=== PATIENT | male | born 1970 | race Caucasian/White ===

== ENCOUNTER 2016-07-07 14:24 | Inpatient (IN) ==
[2016-07-07] MEDS ORDERED: Ipratropium/Albuterol Neb 3 ML IH ONE (15:06)
--- NOTE | 2016-07-07 15:11 | Emergency Department Note ---
Disposition Clinical Impression: Sepsis, Sarcoidosis Pneumonia Qualifiers: Pneumonia type: due to unspecified organism Laterality: bilateral Lung location : unspecified part of lung Qualified Code(s): J18.9 - Pneumonia, unspecified organism Disposition: Admitted As Inpatient Condition: Fair Time of Disposition: 19:57 SOB HPI - General Chief Complaint: ED Shortness of Breath/Dyspnea Stated Complaint: pneumonia worsening Time Seen by Provider: 07/07/16 15:06 Source: patient Nursing Notes Reviewed: Yes Vital Signs Reviewed: Yes - History of Present Illness Patient is a 46-year-old male who presents to [facility] ED with a chief complaint of difficulty breathing. Patient was recently diagnosed with pneumonia in May. He was admitted for a few days and then decided to leave AGAINST MEDICAL ADVICE on . States since then he has been gradually getting worse. He was not discharged with any antibiotics. He is not on any home oxygen. Patient was found to be in the mid 80s at urgent care on room air. Chest x-ray revealed that his pneumonia had gotten a little worse. Patient on exam is dyspneic at rest. Also complaining of right upper quadrant abdominal pain. Denies any nausea, vomiting, fever or chills. No problems with urination or bowel movements. Pt Subjective Complaint: shortness of breath Onset (ago): week(s) Context: recent illness Severity: moderate Consistency/Duration: constant Improves with: nothing Worsens with: nothing Known history of: COPD, diabetes Treatment prior to arrival: oxygen Cough present: No Cough Frequency: Continuous - Related Data Home oxygen amount: none Home Medications Medication Instructions Recorded Confirmed Oxycodone HCl 30 mg PO Q6H PRN 10/17/15 07/07/16 Linagliptin [Tradjenta] 5 mg PO DAILY 12/05/15 07/07/16 Ciclopirox [Loprox] 1 appl TP 3XW 12/27/15 07/07/16 Aspirin [Lo-Dose Aspirin EC] 81 mg PO DAILY 07/07/16 07/07/16 Previous Rx's Medication Instructions Recorded Ibuprofen [Motrin] 600 mg PO Q6HR PRN #30 tab 12/18/15 Allergies Allergy/AdvReac Type Severity Reaction Status Date / Time gabapentin [From Neurontin] Allergy Hives Verified 07/07/16 14:41 acetaminophen [From Vicodin] AdvReac Severe Nausea Verified 07/07/16 18:28 hydrocodone [From Vicodin] AdvReac Nausea Verified 07/07/16 18:28 Oxycodone [From OxyContin] AdvReac Itching Verified 07/07/16 18:28 triamcinolone [From Kenalog] AdvReac Headache Verified 07/07/16 18:28 All systems ED: reviewed and negative except as stated. Past Medical History - Past Medical History Attestation: Yes The following information was validated with the patient. Source: patient Medical history: Reports: COPD, diabetes, RA, other Surgical history: Reports: orthopedic, other Psychiatric history: Reports: no psych history - Social History Smoking Status: Current every day smoker Smokeless Tobacco Status: No Alcohol use: Reports: none Drug use: Reports: none Physical Exam - General Limitations: no limitations General appearance: alert, in no apparent distress - Head Head exam: atraumatic, normocephalic, normal inspection - Eye Eye exam: Present: normal appearance, PERRL, EOMI - ENT ENT exam: normal exam, normal oropharynx, mucous membranes moist - Neck Neck exam: Present: normal inspection, full ROM, trachea midline - Chest Chest inspection: Present: normal inspection, symmetric chest wall rise - Respiratory Respiratory exam: Present: normal lung sounds bilaterally - Cardiovascular Cardiovascular exam: Present: tachycardia, normal heart sounds - Abdominal Exam Abdominal exam: Present: soft, tenderness. Absent: distention, guarding, rebound, rigidity Abdominal tenderness: Present: RUQ, diffuse, severe - Extremities Exam Extremities exam: Present: normal inspection, full ROM. Absent: tenderness, pedal edema - Back Exam Back exam: Present: normal inspection, full ROM. Absent: tenderness - Neurological Exam Neurological exam: Present: alert, oriented X3 - Psychiatric Psychiatric exam: Present: normal affect, normal mood - Skin Skin exam: Present: warm, dry, intact, normal color Course Course Narrative: Patient seen and examined. Worsening dyspnea. He is hypoxemic upon his presentation and his mid 80s on room air. He is not on any home oxygen. He still smokes one pack a day. Left AMA from [facility] when he was diagnosed with pneumonia. Repeat chest x-ray shows worsening pneumonia. Cardiopulmonary workup initiated. - Reevaluation(s) Reevaluation #1: White count of 26. Pending imaging. We will go ahead and treat with vancomycin and Zosyn. Will give 1 L fluid bolus as well as draw blood cultures. Time: 16:49 Reevaluation #2: second L IVF bolus ordered. Spoke with hospitalist Dr. Bartlett who accepted pt for admission. Would like an abg. Time: 18:23 Vital Signs Temperature 98.3 F 07/07/16 14:37 Pulse Rate 112 07/07/16 14:37 Respiratory Rate 22 07/07/16 14:37 Blood Pressure 142/90 07/07/16 14:37 O2 Sat by Pulse Oximetry 88 L 07/07/16 14:37 Temperature 101.1 F H 07/07/16 19:57 Pulse Rate 101 07/07/16 19:57 Respiratory Rate 20 07/07/16 19:57 Blood Pressure 119/74 07/07/16 19:57 O2 Sat by Pulse Oximetry 91 L 07/07/16 19:57 Oxygen Delivery Oxygen Delivery Nasal Cannula Shortness of Breath/Dyspnea - Medical Records Medical records reviewed: Yes I reviewed the patient's medical records. - Lab Data Lab results reviewed: Yes I reviewed the patient's lab results. Result diagrams: 07/07/16 15:29 07/07/16 15:29 Lab Results 07/07/16 07/07/16 07/07/16 Range/Units 15:29 15:29 15:29 WBC 26.9 H (4.3-11.1) K/mcL RBC 7.02 H (4.19-5.50) M/mcL Hgb 20.2 H (12.9-16.9) g/dL Hct 61.0 H (37.5-50.1) % MCV 86.9 (83.0-100.0) fL MCH 28.8 (28.0-33.3) pg MCHC 33.1 (31.6-35.5) g/dL RDW 14.9 H (11.5-14.5) % Plt Count 150 (140-400) K/mcL MPV 10.7 (9.4-12.4) fL Seg Neutrophils % 82.0 % Band Neutrophils % 4.0 (0-4) % Lymphocytes % 10.0 % Monocytes % 4.0 % Neutrophils # 23.1 H (1.6-8.9) K/mcL Lymphocytes # 2.7 (0.6-4.6) K/mcL Monocytes # 1.1 (0.0-1.3) K/mcL Reactive Lymphocytes Present A (Not Present) Platelet Estimate Normal (Normal) Sodium 137 (136-145) mEq/L Potassium 4.1 (3.5-4.5) mEq/L Chloride 103 (98-109) mEq/L Carbon Dioxide 25 (19-29) mEq/L BUN 8 (8-26) mg/dL Creatinine 0.83 (0.72-1.25) mg/dL Est GFR ( Amer) > 60 (> 60) Est GFR (Non-Af Amer) > 60 (> 60) BUN/Creatinine Ratio 10 (6-26) Glucose 243 H (70-99) mg/dL Calculated Osmolality 290 (280-300) Lactic Acid 2.9 H (0.5-2.2) mmol/L Calcium 9.4 (8.6-10.8) mg/dL Total Bilirubin 0.6 (0.2-1.2) mg/dL Direct Bilirubin 0.2 (0.0-0.5) mg/dL Indirect Bilirubin 0.4 (0.0-1.2) mg/dL AST 16 (5-34) Units/L ALT 36 (0-55) Units/L Alkaline Phosphatase 122 (38-126) Units/L Troponin I (0-0.03) ng/mL B-Natriuretic Peptide (0-100) pg/mL Serum Total Protein 7.1 (6.0-8.3) g/dL Albumin 3.5 (3.5-5.0) g/dL Globulin 3.6 H (2.4-3.5) g/dL Albumin/Globulin Ratio 1.0 L (1.1-2.2) Lipase 36 (8-78) Units/L 07/07/16 07/07/16 Range/Units 15:29 15:29 WBC (4.3-11.1) K/mcL RBC (4.19-5.50) M/mcL Hgb (12.9-16.9) g/dL Hct (37.5-50.1) % MCV (83.0-100.0) fL MCH (28.0-33.3) pg MCHC (31.6-35.5) g/dL RDW (11.5-14.5) % Plt Count (140-400) K/mcL MPV (9.4-12.4) fL Seg Neutrophils % % Band Neutrophils % (0-4) % Lymphocytes % % Monocytes % % Neutrophils # (1.6-8.9) K/mcL Lymphocytes # (0.6-4.6) K/mcL Monocytes # (0.0-1.3) K/mcL Reactive Lymphocytes (Not Present) Platelet Estimate (Normal) Sodium (136-145) mEq/L Potassium (3.5-4.5) mEq/L Chloride (98-109) mEq/L Carbon Dioxide (19-29) mEq/L BUN (8-26) mg/dL Creatinine (0.72-1.25) mg/dL Est GFR ( Amer) (> 60) Est GFR (Non-Af Amer) (> 60) BUN/Creatinine Ratio (6-26) Glucose (70-99) mg/dL Calculated Osmolality (280-300) Lactic Acid (0.5-2.2) mmol/L Calcium (8.6-10.8) mg/dL Total Bilirubin (0.2-1.2) mg/dL Direct Bilirubin (0.0-0.5) mg/dL Indirect Bilirubin (0.0-1.2) mg/dL AST (5-34) Units/L ALT (0-55) Units/L Alkaline Phosphatase (38-126) Units/L Troponin I 0.00 (0-0.03) ng/mL B-Natriuretic Peptide < 10 (0-100) pg/mL Serum Total Protein (6.0-8.3) g/dL Albumin (3.5-5.0) g/dL Globulin (2.4-3.5) g/dL Albumin/Globulin Ratio (1.1-2.2) Lipase (8-78) Units/L - Radiology Data Radiology results reviewed: Yes I reviewed the patient's radiology results. - EKG Data EKG attestation: Yes I reviewed and interpreted this EKG. EKG results narrative: ekg done at 14:52 shows sinus tachycardia at [address] elevation or depressiionon. inverted Critical Care Time Critical Care Time: Yes Total Critical Care Time: 35 Attestation: Rectal care time 30 minutes separate of any other billable procedures. Attestation Statement - Attestation Attestation: Patient was seen with resident physician. I reviewed the history, physical, assessment and plan, and agree with the findings. I also personally evaluated this patient and had [id number] time with this patient. 46-year-old male who was recently admitted to a different hospital with a diagnosis of pneumonia. He left AGAINST MEDICAL ADVICE on because he wanted to be home. He was not sent home with any antibiotic treatments. Getting progressively more short of breath since then was seen in urgent care and a x- ray completed that showed worsening pneumonia was sent to the emergency department for evaluation. Additionally patient states that he has had midepigastric and right upper abdominal pain for approximately 1 month period of time he has not had any workup for this. On examination patient has crackles bilaterally in the lungs but otherwise is moving air heart is regular rhythm and rate abdomen is soft and fairly tender in both the midepigastric and right upper quadrants. Extremities are unremarkable. X-ray shows bilateral pneumonia possible aspiration ration, as well as possible sarcoidosis. We will obtain a CT scan of the chest to further rule this out. Also get a CT scan of the abdomen and pelvis to look for causes of his abdominal discomfort. Laboratory data showed significantly elevated white cell count as well as H&H. Patient has an auction requirement will require admission to the hospital. He did meet sepsis criteria was given IV fluids and IV antibiotics as well. We will admit for pneumonia and hypoxemia. Agree with resident physician assessment and plan critical care time 35 minutes.
[2016-07-07] MEDS ORDERED: Ketorolac 30 MG/ML VIAL IV ONE (15:32)
[2016-07-07 15:46] LABS: Mean Corpuscular Volume 86.9 fL (83.0-100.0)
[2016-07-07 15:47] LABS: Hemoglobin 20.2 g/dL (12.9-16.9); Mean Corpuscular HGB Conc 33.1 g/dL (31.6-35.5); Mean Corpuscular Hemoglobin 28.8 pg (28.0-33.3); Mean Platelet Volume 10.7 fL (9.4-12.4); Platelet Count 150 K/mcL (140-400); Red Blood Count 7.02 M/mcL (4.19-5.50); Red Cell Distribution Width 14.9 % (11.5-14.5)
[2016-07-07 16:03] LABS: Alanine Aminotransferase 36 Units/L (0-55); Albumin 3.5 g/dL (3.5-5.0); Alkaline Phosphatase 122 Units/L (38-126); Aspartate Amino Transferase 16 Units/L (5-34); BUN/Creatinine Ratio 10 (6-26); Bilirubin,Direct 0.2 mg/dL (0.0-0.5); Bilirubin,Indirect 0.4 mg/dL (0.0-1.2); Bilirubin,Total 0.6 mg/dL (0.2-1.2); Blood Urea Nitrogen 8 mg/dL (8-26); Calcium 9.4 mg/dL (8.6-10.8); Carbon Dioxide 25 mEq/L (19-29); Chloride 103 mEq/L (98-109); Globulin 3.6 g/dL (2.4-3.5); Glucose 243 mg/dL (70-99); Lipase 36 Units/L (8-78); Osmolality,Calculated 290 (280-300); Potassium 4.1 mEq/L (3.5-4.5); Sodium 137 mEq/L (136-145); Total Protein 7.1 g/dL (6.0-8.3); eGFR For African Americans > 60 (> 60); eGFR For Non-African Americans > 60 (> 60)
[2016-07-07] MEDS ORDERED: 0.9 % Sodium Chloride 1,000 ML IVC ONE ×2 (16:07→18:17)
[2016-07-07 16:20] LABS: Lymphocytes # 2.7 K/mcL (0.6-4.6); Monocytes # 1.1 K/mcL (0.0-1.3); Neutrophils # 23.1 K/mcL (1.6-8.9); Platelet Estimate Normal (Normal); Reactive Lymphocytes Present (Not Present)
[2016-07-07] MEDS ORDERED: Piperacillin/Tazobactam 3.375 GM in D5% in Water (Mini-Bag+) 100 ML IVPB ONE (16:46)
[2016-07-07] MEDS ORDERED: Vancomycin 1,500 MG in D5% in Water 250 ML IVPB ONE (17:00)
[2016-07-07] MEDS ORDERED: *HR* LORazepam 2 MG/ML VIAL IVP ONE (18:43)
[2016-07-07] MEDS ORDERED: Ondansetron 4 MG/2 ML VIAL IV ONE (18:57)
[2016-07-07] MEDS ORDERED: Naloxone 0.4 MG/ML INJ IVP PRN (19:28)
[2016-07-07] MEDS ORDERED: Ondansetron 4 MG/2 ML VIAL IVP PRN (19:28)
--- NOTE | 2016-07-07 20:22 | Internal Med History&Physical ---
Date of Encounter: 07/07/16 Time of Encounter: 20:00 Assessment and Plan (1) Pneumonia Current visit: No Status: Acute Recent pneumonia in May. Patient left AMA without prescriptions for continuation of antibiotic treatment. On abatacept prior to infection. Further workup includes viral panel, strep and legionella antigens, and blood cultures. Consult to pulmonology for possible bronchoscopy. Consideration for pneumocystis jiroveci. Broad spectrum antibiotic coverage with Zosyn, Levofloxacin, and vancomycin. Continue supplemental oxygenation as needed, duoneb treatments. Low suspicion for TB. No weight loss, recent travel, or hemoptysis. Qualifiers: Pneumonia type: due to unspecified organism Laterality: bilateral Lung location: unspecified part of lung Qualified Code(s): J18.9 - Pneumonia, unspecified organism (2) Severe sepsis Current visit: Yes Status: Acute Patient meets severe sepsis criteria with elevated WBC at 26.9, tachycardia >90 , and lactic acid greater than 2. See plan of treatment for pneumonia. (3) COPD (chronic obstructive pulmonary disease) Current visit: Yes Status: Acute In acute exacerbation secondary to pneumonia. See plan for pneumonia. Qualifiers: COPD type: emphysema Emphysema type: unspecified Qualified Code(s): J43.9 - Emphysema, unspecified (4) Obstructive sleep apnea Current visit: Yes Status: Acute (5) Erythrocytosis Current visit: Yes Status: Acute Hemoglobin of 20.2, hematocrit 61, RBCs 7.02. Previously had blood letting weekly, but has not had one in the past 6 months. Continue IV fluids. Consult to oncology. (6) Rheumatoid arthritis Current visit: Yes Status: Acute Positive CCP Qualifiers: Rheumatoid arthritis location: multiple sites Rheumatoid factor presence: unspecified presence Qualified Code(s): M06.9 - Rheumatoid arthritis, unspecified (7) Diabetes Current visit: Yes Status: Acute Sugars elevated at 243 upon arrival. Will hold home medication and correct with sliding scale insulin. Qualifiers: Diabetes mellitus type: type 2 Diabetes mellitus complication status: without complication Diabetes mellitus halfway insulin use: without halfway use Qualified Code(s): E11.9 - Type 2 diabetes mellitus without complications (8) DVT prophylaxis Current visit: Yes Status: Acute Heparin 5000 units SQ Q8hrs (9) Tobacco use disorder Current visit: No Status: Acute Patient has been prescribed varenicline, but states he has not gotten a chance to start it yet and does not feel in any hurry to quit. Nicoderm patches ordered. Internal Medicine - H&P: HPI Chief complaint: dyspnea Admitted From: Emergency Dept Plans for Post Hospital Care: Home History of present illness: Mr. Harmon is a 46 year old male with PMH of COPD, DM, RA, and BERNY who presented to the emergency department for worsening shortness of breath. He states that he has been going through cycles of fevers, chills, coughing and nausea with vomiting every day since he left the hospital on thanksgiving. At that time he was admitted with pneumonia and left AMA without any home medications for continuation of antibiotic therapy. He denies any change in weight over the last month despite stating his cycles of fevers, chills, coughing and nausea with vomiting occur six times per day. He denies any blood or bile in his vomit. He denies any change in bowel and bladder function. He states he has had a headache with ear pain and sinus pressure for the past three days. He has had a dry nonproductive cough since for the past 4 weeks. He was evaluated at urgent care just prior to arrival to the ED and was found to have oxygen saturation in the 80s on room air. He states just prior to being sick he had started on abatacept for his RA and had previously tried Adalimumab shortly before. He states that he has not taken either of these medications since the onset of his current illness. Past Med Surg Social Fam HX - Past Medical History Medical history: COPD, diabetes, RA, other (BERNY) Psychiatric history: no psych history - Past Surgical History Surgical History: orthopedic, other (nodules removed from elbows, left foot, and right shoulder surgeries) - Social History Smoking Status: Current every day smoker Smokeless Tobacco Status: No Alcohol use: none Drug use: none - Family History Father Living Status: Age at : 39 Hx Family Cardiac Disorders: Yes (Triple bypass at age 33, 35, and 37. [place] at 39) Hx Family Musculoskeletal Disorders: Yes (arthritis) Mother Living Status: Still Living Hx Family Respiratory Disorders: Yes (emphysema) Hx Family Musculoskeletal Disorders: Yes (arthritis) Internal Medicine - H&P: Meds Oxycodone HCl 30 mg PO Q6H PRN 10/17/15 [History] Linagliptin [Tradjenta] 5 mg PO DAILY 12/05/15 [History] Ibuprofen [Motrin] 600 mg PO Q6HR PRN #30 tab 12/18/15 [Rx] Ciclopirox [Loprox] 1 appl TP 3XW 12/27/15 [History] Aspirin [Lo-Dose Aspirin EC] 81 mg PO DAILY 07/07/16 [History] Allergies gabapentin [From Neurontin] Allergy (Verified 07/07/16 14:41) Hives acetaminophen [From Vicodin] Adverse Reaction (Severe, Verified 07/07/16 18:28) Nausea hydrocodone [From Vicodin] Adverse Reaction (Verified 07/07/16 18:28) Nausea Oxycodone [From OxyContin] Adverse Reaction (Verified 07/07/16 18:28) Itching triamcinolone [From Kenalog] Adverse Reaction (Verified 07/07/16 18:28) Headache All Systems PM: A 10-system review of systems was performed and is negative for pertinent findings except as documented above in the HPI. - Constitutional Constitutional: chills, fever(s), no night sweats, no weakness, no weight gain, no weight loss - EENT Eyes: no change in vision, no discharge, no pain, no photophobia Ears: ear pain, no decreased hearing, no ear discharge Nose, mouth and throat: nasal congestion, post-nasal drip, sinus pressure - Cardiovascular Cardiovascular ROS IM: dyspnea, no chest pain, no diaphoresis, no lightheadedness, no palpitations, no syncope - Respiratory Respiratory: cough, dyspnea, dyspnea on exertion, no hemoptysis, no wheezing, no excessive phlegm production - Gastrointestinal Gastrointestinal: abdominal pain, nausea, vomiting, no diarrhea, no hematemesis , no hematochezia, no melena - Musculoskeletal Musculoskeletal ROS IM: no numbness, no tingling - Integumentary Integumentary IM: no rash, no unusual bruising - Neurological Neurological ROS: no confusion, no convulsions, no focal weakness, no numbness, no tingling, no tremor(s) - Hematologic/Lymphatic Hematologic/Lymphatic: no easy bruising - Constitutional Vitals: Temp Pulse Resp BP Pulse Ox 98.3 F 113 16 120/78 94 L 07/07/16 14:37 07/07/16 18:31 07/07/16 19:22 07/07/16 19:22 07/07/16 18:31 General appearance: Present: A&O X 3, no acute distress - Head Head exam: Present: atraumatic, normocephalic - Eye Eye exam: Present: EOMI, PERRL, conjuntiva pink, sclera anicteric Pupils: Present: PERRL - Neck Neck exam general surgery: Present: supple, trachea midline. Absent: lymphadenopathy - Respiratory Respiratory exam: Absent: accessory muscle use, rales, rhonchi, wheezes Additional comments: crackles at left lung base - Cardiovascular Cardiovascular exam: Present: RRR, +S1, +S2. Absent: diastolic murmur, gallop, rubs, systolic murmur - GI/Abdominal GI/Abdominal exam: Present: normal bowel sounds, soft, tenderness (diffuse, worst in RUQ), no peritoneal signs. Absent: distended - Extremities Exam Extremities exam: Present: warm, radial pulses palpable and symetrical. Absent : calf tenderness, cyanotic, pedal edema - Neurological Exam Neurological exam: Present: CN II-XII intact, oriented X3, no focal deficits. Absent: pronater drift, facial droop, speech deficit Additional comments: Strength 5/5 in upper extremities and symmetric. Strength 4/5 in right lower extremity due to pain of the foot. Strength 5/5 in left lower extremity. - Skin Skin exam: Present: dry, intact Internal Med - H&P Results - Labs CBC & Chem 7: 07/07/16 15:29 07/07/16 15:29 - Attending Attestation I examined this patient and my medical decision-making was reviewed with the SHEET METAL ASSEMBLER/PA/Advanced Practice Nurse/Resident Physician. I agree with the documented findings, disposition and treatment plan as described except to the extent set forth below.
[2016-07-07] MEDS ORDERED: Dextrose Gel 15 GM PO PRN ×2 (20:51)
[2016-07-07] MEDS ORDERED: *HR* Dextrose 50 % in Water (Syg) 50 ML SYRINGE IVP PRN (20:51)
[2016-07-07] MEDS ORDERED: D5% in Water 1,000 ML IV PRN (20:51)
[2016-07-07] MEDS ORDERED: Ipratropium/Albuterol Neb 3 ML IH PRN (20:54)
[2016-07-07] MEDS ORDERED: Vancomycin 1,500 MG in D5% in Water 250 ML IVPB SCH (21:00)
[2016-07-07] MEDS ORDERED: Ibuprofen 600 MG TABLET PO PRN (21:03)
--- NOTE | 2016-07-07 21:45 | Event Note ---
Date of Encounter: 07/07/16 Time of Encounter: 21:00 I examined this patient and my medical decision-making was reviewed with Dr. Mai. I agree with the documented findings, disposition and treatment plan as described except to the extent set forth below. 46-year-old male with history of rheumatoid arthritis presents to the emergency room due to shortness of breath and hypoxia. He has been on immunosuppressant medications in the past. He is complaining of shortness of breath, cough. Examination reveals intermittent wheezing. First and second heart sounds present with mild tachycardia. CT scan personally reviewed-diffuse ground glass opacities bilaterally and mediastinal lymph adenopathy. 1. Pneumonia-admit inpatient status. High risk due to risk of worsening respiratory failure and the need for intravenous antibiotic therapy for his pneumonia. Patient is at risk of MRSA, Pseudomonas, multidrug resistant Escherichia coli due to recent hospitalization in May at which time he left AMA. He is also at risk of pneumocystis and atypical organisms due to his immunosuppression status. Pulmonology consult. Broad-spectrum IV antibiotic therapy. Oxygen supplementation. Intravenous fluids. Breathing treatments. Expect the patient to stay in the hospital at least 2 midnights. Expected discharge disposition is to his home. 2. Severe sepsis-white count greater than 12,000 and heart rate greater than 90 /m. Lactic acid level greater than 2. Treatment as above. Repeat Lactic acid level ordered. Intravenous fluids. 3. Diabetes [id number] insulin. 4. Chronic erythrocytosis-patient follows up with oncologist outpatient and was having therapeutic bloodletting once a week but has not had one in over 6 months. Oncology consult. Intravenous fluids. 5. Obstructive sleep apnea KATERINE Chavez
[2016-07-07] MEDS: *HR* OxyCODONE Immed Rel 15 MG TABLET PO PRN (22:30)
[2016-07-07] MEDS: Nicotine 14 MG PATCH.TD24 TD SCH (22:31)
[2016-07-07] MEDS: 0.9 % Sodium Chloride 1,000 ML IVC SCH (22:31)
[2016-07-07] MEDS: Insulin LISPRO 300 UNITS/3 ML VIAL SQ SCH (23:16)
[2016-07-07] MEDS: Piperacillin/Tazobactam 3.375 GM in D5% in Water (Mini-Bag+) 100 ML IVPB SCH (23:16)
[2016-07-07] MEDS: *HR* Heparin 5,000 UNIT/ML VIAL SQ SCH (23:16)
[2016-07-08 04:59] LABS: Basophils # 0.1 K/mcL (0.0-0.2); Basophils % 0.6 %; Eosinophils # 0.1 K/mcL (0.0-0.6); Eosinophils % 0.9 %; Hemoglobin 18.7 g/dL (12.9-16.9); Immature Granulocytes % 0.4 % (0-4); Lymphocytes # 3.4 K/mcL (0.6-4.6); Lymphocytes % 27.2 %; Mean Corpuscular HGB Conc 32.1 g/dL (31.6-35.5); Mean Corpuscular Hemoglobin 28.9 pg (28.0-33.3); Mean Corpuscular Volume 89.8 fL (83.0-100.0); Mean Platelet Volume 11.5 fL (9.4-12.4); Monocytes # 0.5 K/mcL (0.0-1.3); Monocytes % 3.8 %; Neutrophils # 8.3 K/mcL (1.6-8.9); Platelet Count 151 K/mcL (140-400); Red Blood Count 6.48 M/mcL (4.19-5.50); Red Cell Distribution Width 14.2 % (11.5-14.5); Segmented Neutrophils % 67.1 %
[2016-07-08 05:10] LABS: Hematocrit 58.2 % (37.5-50.1)
[2016-07-08] MEDS: Vancomycin 1,500 MG in D5% in Water 250 ML IVPB SCH ×2 (05:10→18:37)
[2016-07-08] MEDS: *HR* OxyCODONE Immed Rel 15 MG TABLET PO PRN ×3 (05:10→19:56)
[2016-07-08 05:32] LABS: Alanine Aminotransferase 30 Units/L (0-55); Albumin 3.1 g/dL (3.5-5.0); Alkaline Phosphatase 95 Units/L (38-126); Aspartate Amino Transferase 15 Units/L (5-34); BUN/Creatinine Ratio 12 (6-26); Bilirubin,Total 0.6 mg/dL (0.2-1.2); Blood Urea Nitrogen 10 mg/dL (8-26); Calcium 8.6 mg/dL (8.6-10.8); Carbon Dioxide 25 mEq/L (19-29); Chloride 107 mEq/L (98-109); Globulin 3.1 g/dL (2.4-3.5); Glucose 145 mg/dL (70-99); Osmolality,Calculated 292 (280-300); Potassium 4.3 mEq/L (3.5-4.5); Sodium 140 mEq/L (136-145); Total Protein 6.2 g/dL (6.0-8.3); eGFR For African Americans > 60 (> 60); eGFR For Non-African Americans > 60 (> 60)
[2016-07-08] MEDS ORDERED: *HR* Promethazine 25 MG/ML VIAL IVP ONE (09:22)
[2016-07-08] MEDS ORDERED: *HR* Promethazine 25 MG/ML VIAL ONE (09:24)
--- NOTE | 2016-07-08 09:24 | Internal Med Progress Note ---
<Rogerio Odell - Last Filed: 07/08/16 18:38> Date of Encounter: 07/08/16 Time of Encounter: 08:45 - Assessment and plan (1) Pneumonia Current Visit: No Status: Acute Assessment and plan: - Recent pneumonia in May but patient left AMA without prescriptions for continuation of antibiotic treatment. - Was on abatacept for RA prior to infection. - Low suspicion for TB given no weight loss, recent travel, or hemoptysis. - Respiratory infection panel, strep and legionella antigens and blood cultures pending. - Pulmonology has been consulted for possible bronchoscopy for concern of pneumocystis jiroveci. Also appreciate pulmonology input about possible pulmonary arterial hypertension. - Continue broad spectrum antibiotic coverage with Zosyn, Levofloxacin, and vancomycin. - Continue supplemental oxygen & Duoneb treatments. Qualifiers: Pneumonia type: due to unspecified organism Laterality: bilateral Lung location: unspecified part of lung Qualified Code(s): J18.9 - Pneumonia, unspecified organism (2) Severe sepsis Current Visit: Yes Status: Acute Assessment and plan: - 3 SIRS criteria (leukocytosis, fever & tachycardia on initial presentation) with lactic acid 2.9. - Likely secondary to pneumonia. - Improves as patient has been afebrile and leukocytosis decreases. - Blood culture pending. - Continue IV fluid. - Continue empiric antibiotics. (3) Erythrocytosis Current Visit: Yes Status: Chronic Assessment and plan: - Hemoglobin of 20.2, hematocrit 61, RBCs 7.02 on initial presentation. - Previously had blood letting weekly, but has not had one in the past 6 months. - Improves after IV fluids. - Oncology was consulted and thinks it's secondary erythrocytosis from chronic smoking, COPD, sleep apnea. - Supplemental oxygen use and CPAP use at night. (4) COPD (chronic obstructive pulmonary disease) Current Visit: Yes Status: Acute Assessment and plan: - Continue bronchodilators. - Supplemental oxygen. Qualifiers: COPD type: emphysema Emphysema type: unspecified Qualified Code(s): J43.9 - Emphysema, unspecified (5) DVT prophylaxis Current Visit: Yes Status: Acute Assessment and plan: - SQ heparin. - Subjective Interval history: Patient was seen and examined this morning. Patient reports feeling sick and nausea. Patient also has some chills. Patient denies chest pain, diarrhea. - Constitutional Vitals: Temp Pulse Resp BP Pulse Ox 98.1 F 77 16 106/67 97 07/08/16 07:02 07/08/16 07:02 07/08/16 07:02 07/08/16 07:02 07/08/16 07:02 General appearance: Present: cooperative, A&O X 3, severe distress (Feeling sick & nauseated.), answers questions appropriately - Head Head exam: Present: atraumatic, normocephalic - Eye Eye exam: Present: PERRL, conjuntiva pink, sclera anicteric Pupils: Present: PERRL - Neck Neck exam general surgery: Present: supple, trachea midline. Absent: lymphadenopathy - Respiratory Respiratory exam: Present: rales (left basilar crackles). Absent: accessory muscle use, rhonchi, wheezes - Cardiovascular Cardiovascular exam: Present: RRR, +S1, +S2. Absent: diastolic murmur, gallop, rubs, systolic murmur - GI/Abdominal GI/Abdominal exam: Present: normal bowel sounds, soft, tenderness (epigastric discomfort), no peritoneal signs. Absent: distended - Extremities Exam Extremities exam: Present: warm, radial pulses palpable and symetrical. Absent : calf tenderness, cyanotic, pedal edema - Neurological Exam Neurological exam: Present: CN II-XII intact, oriented X3, no focal deficits. Absent: pronater drift, facial droop, speech deficit - Skin Skin exam: Present: dry, intact Internal Medicine: Result - Labs CBC & Chem 7: 07/08/16 03:38 07/08/16 03:38 Labs: Short CBC 07/08/16 Range/Units 03:38 WBC 12.4 H D (4.3-11.1) K/mcL Hgb 18.7 H D (12.9-16.9) g/dL Hct 58.2 H (37.5-50.1) % Plt Count 151 (140-400) K/mcL Neutrophils # 8.3 (1.6-8.9) K/mcL BMP 07/08/16 03:38 Sodium 140 Potassium 4.3 Chloride 107 Carbon Dioxide 25 BUN 10 Creatinine 0.82 Glucose 145 H Calcium 8.6 Cardiac Enzymes 07/07/16 07/08/16 Range/Units 21:22 03:38 Troponin I 0.00 0.00 (0-0.03) ng/mL Liver Function 07/08/16 Range/Units 03:38 Total Bilirubin 0.6 (0.2-1.2) mg/dL AST 15 (5-34) Units/L ALT 30 (0-55) Units/L Alkaline Phosphatase 95 (38-126) Units/L Albumin 3.1 L (3.5-5.0) g/dL Consult Discharge Plan - Plan Referrals: Tamara Ordoñez, [employer] [Primary Care Provider] - <Beni Bravo - Last Filed: 07/08/16 18:59> Date of Encounter: 07/08/16 - Constitutional Vitals: Temp Pulse Resp BP Pulse Ox 98.1 F 90 14 113/77 89 L 07/08/16 15:05 07/08/16 15:05 07/08/16 15:05 07/08/16 15:05 07/08/16 15:05 Internal Medicine: Result - Labs CBC & Chem 7: 07/08/16 03:38 07/08/16 03:38 Labs: Short CBC 07/08/16 Range/Units 03:38 WBC 12.4 H D (4.3-11.1) K/mcL Hgb 18.7 H D (12.9-16.9) g/dL Hct 58.2 H (37.5-50.1) % Plt Count 151 (140-400) K/mcL Neutrophils # 8.3 (1.6-8.9) K/mcL BMP 07/08/16 03:38 Sodium 140 Potassium 4.3 Chloride 107 Carbon Dioxide 25 BUN 10 Creatinine 0.82 Glucose 145 H Calcium 8.6 Cardiac Enzymes 07/07/16 07/08/16 07/08/16 Range/Units 21:22 03:38 09:08 Troponin I 0.00 0.00 0.01 (0-0.03) ng/mL Liver Function 07/08/16 Range/Units 03:38 Total Bilirubin 0.6 (0.2-1.2) mg/dL AST 15 (5-34) Units/L ALT 30 (0-55) Units/L Alkaline Phosphatase 95 (38-126) Units/L Albumin 3.1 L (3.5-5.0) g/dL - Attending Attestation I examined this patient and my medical decision-making was reviewed with the [employer]/PA/Advanced Practice Nurse/Resident Physician. I agree with the documented findings, disposition and treatment plan as described except to the extent set forth below.
[2016-07-08] MEDS: Levofloxacin 750 MG/150 ML 750 MG/150 ML BAG IVPB SCH (09:31)
[2016-07-08] MEDS: *HR* Heparin 5,000 UNIT/ML VIAL SQ SCH ×3 (09:32→23:40)
[2016-07-08] MEDS: Insulin LISPRO 300 UNITS/3 ML VIAL SQ SCH ×4 (09:32→20:09)
[2016-07-08] MEDS: Piperacillin/Tazobactam 3.375 GM in D5% in Water (Mini-Bag+) 100 ML IVPB SCH ×3 (12:29→23:40)
[2016-07-08] MEDS: Nicotine 14 MG PATCH.TD24 TD SCH (12:31)
[2016-07-08] MEDS: Aspirin Enteric Coated 81 MG Tablet PO SCH (13:22)
[2016-07-08] MEDS: 0.9 % Sodium Chloride 1,000 ML IVC SCH ×2 (13:40→23:39)
--- NOTE | 2016-07-08 14:17 | Electrocardiograph Report ---
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
--- NOTE | 2016-07-08 17:28 | Oncology Inp Consult Note ---
Date of Encounter: 07/08/16 Time of Encounter: 17:00 Assessment and Plan (1) Erythrocytosis Status: Chronic Assessment and plan: Chronic secondary erythrocytosis lab works somewhat improved with hydration since hospitalization. Patient does have secondary erythrocytosis from chronic smoking, COPD, sleep apnea. Encourage oxygen, CPAP use, quit smoking. Pulm evalu arterial hypertension. He currently has diagnosis of pneumonia/sepsis- continue monitoring labs daily do not suggest phlebotomy for secondary erythrocytosis. He can follow up with Dr Hernandez as an outpatient after discharge Plan of care as above discussed with patient and his family in detail. - Data of Consult Requesting Physician: Blanco More DO Primary Care Provider: Tamara Ordoñez CNP - Consult Narrative Reason for consult: erythrocytosis secondary History of present illness: Mr. Harmon is a 46 year old male with medical history significant for COPD, rheumatoid arthritis, erythrocytosis which was thought to be secondary patient seen in our clinic in December 2015 with phlebotomies with decrease in hemoglobin and hematocrit when he presented with hemoglobin of around 20 g. He has subsequently lost to follow-up and is presented today with symptoms suggestive off pneumonia. He has diffuse ground glass opacities in both lungs and findings suggestive of pulmonary edema and borderline pulmonary artery dilatation. Mildly enlarged mediastinal lymph nodes. Noted in his imaging studies. Patient is on IV antibiotics with the diagnosis of rule out sepsis. Hematology consulted for his lab abnormalities. Past Med Surg Social Fam HX - Past Medical History Medical history: COPD, diabetes, RA, other (BERNY) Psychiatric history: no psych history - Past Surgical History Surgical History: orthopedic, other (nodules removed from elbows, left foot, and right shoulder surgeries) - Social History Smoking Status: Current every day smoker Packs per day: 1 1/2 pack a day Smokeless Tobacco Status: No Alcohol use: none Drug use: none - Family History Mother Name: Lita Rider Age: 62 Family Member Ethnicity: Non- Living Status: Still Living Hx Family Cardiac Disorders: No Hx Family Respiratory Disorders: No Hx Family Cancer: No Hx Family GI Disorders: No Hx Family Genitourinary Disorders: No Hx Family Endocrine Disorder: No Hx Family Musculoskeletal Disorders: No Hx Family Neuromuscular Disorders: No Hx Family Neurologic Disorders: No Hx Family HEENT Disorders: No Hx Family Autoimmune Disorders: No Hx Family Reproductive Disorders: No Hx Family Psychosocial Disorders: No Hx Family Medical Disorders: No Father Living Status: Age at : 39 Hx Family Cardiac Disorders: Yes (Triple bypass at age 35, 35, and 37. ME at 39) Hx Family Musculoskeletal Disorders: Yes (arthritis) Medications and Allergies Oxycodone HCl 30 mg PO Q6H PRN 10/17/15 [History] Linagliptin [Tradjenta] 5 mg PO DAILY 12/05/15 [History] Ibuprofen [Motrin] 600 mg PO Q6HR PRN #30 tab 12/18/15 [Rx] Ciclopirox [Loprox] 1 appl TP 3XW 12/27/15 [History] Aspirin [Lo-Dose Aspirin EC] 81 mg PO DAILY 07/07/16 [History] Allergies gabapentin [From Neurontin] Allergy (Verified 07/07/16 14:41) Hives acetaminophen [From Vicodin] Adverse Reaction (Severe, Verified 07/07/16 18:28) Nausea hydrocodone [From Vicodin] Adverse Reaction (Verified 07/07/16 18:28) Nausea Oxycodone [From OxyContin] Adverse Reaction (Verified 07/07/16 18:28) Itching triamcinolone [From Kenalog] Adverse Reaction (Verified 07/07/16 18:28) Headache Review of systems: as in HPI. Occ headaches, otherwise neg Oncology - Exam - Constitutional Vitals: Temp Pulse Resp BP Pulse Ox 98.1 F 90 14 113/77 89 L 07/08/16 15:05 07/08/16 15:05 07/08/16 15:05 07/08/16 15:05 07/08/16 15:05 General appearance: obese - Head Head exam: Present: atraumatic, normal inspection - Eye Eye exam: Present: sclera anicteric - ENT ENT exam: Present: mucous membranes moist - Respiratory Respiratory exam: Present: CTAB - Cardiovascular Cardiovascular exam: Present: +S1, +S2 - GI/Abdominal GI/Abdominal exam: Present: normal bowel sounds, soft - Extremities Exam Extremities exam: Present: normal inspection - Neurological Exam Neurological exam: Present: alert, oriented X3 - Psychiatric Psychiatric exam: Present: normal affect Oncology - Results - Labs Labs: Short CBC 07/08/16 Range/Units 03:38 WBC 12.4 H D (4.3-11.1) K/mcL Hgb 18.7 H D (12.9-16.9) g/dL Hct 58.2 H (37.5-50.1) % Plt Count 151 (140-400) K/mcL Neutrophils # 8.3 (1.6-8.9) K/mcL BMP 07/08/16 03:38 Sodium 140 Potassium 4.3 Chloride 107 Carbon Dioxide 25 BUN 10 Creatinine 0.82 Glucose 145 H Calcium 8.6 Cardiac Enzymes 07/07/16 07/08/16 07/08/16 Range/Units 21:22 03:38 09:08 Troponin I 0.00 0.00 0.01 (0-0.03) ng/mL Liver Function 07/08/16 Range/Units 03:38 Total Bilirubin 0.6 (0.2-1.2) mg/dL AST 15 (5-34) Units/L ALT 30 (0-55) Units/L Alkaline Phosphatase 95 (38-126) Units/L Albumin 3.1 L (3.5-5.0) g/dL - Imaging and Cardiology CT scan - chest Status: image reviewed by me Consult Discharge Plan - Plan Referrals: Tamara Ordoñez, [employer] MANAGER [Primary Care Provider] -
[2016-07-09 05:46] LABS: INR 1.1; Prothrombin Time 12.2 Seconds (9.4-12.1)
[2016-07-09 05:51] LABS: Basophils % 0.4 %; Eosinophils # 0.1 K/mcL (0.0-0.6); Eosinophils % 1.1 %; Hematocrit 52.6 % (37.5-50.1); Immature Granulocytes % 0.7 % (0-4); Lymphocytes # 3.2 K/mcL (0.6-4.6); Lymphocytes % 30.6 %; Mean Corpuscular HGB Conc 31.6 g/dL (31.6-35.5); Mean Corpuscular Hemoglobin 28.2 pg (28.0-33.3); Mean Corpuscular Volume 89.5 fL (83.0-100.0); Monocytes # 0.7 K/mcL (0.0-1.3); Monocytes % 6.6 %; Neutrophils # 6.4 K/mcL (1.6-8.9); Platelet Count 129 K/mcL (140-400); Red Blood Count 5.88 M/mcL (4.19-5.50); Red Cell Distribution Width 13.6 % (11.5-14.5); Segmented Neutrophils % 60.6 %
[2016-07-09 05:53] LABS: Hemoglobin 16.6 g/dL (12.9-16.9)
[2016-07-09 06:00] LABS: BUN/Creatinine Ratio 13 (6-26); Blood Urea Nitrogen 9 mg/dL (8-26); Calcium 8.3 mg/dL (8.6-10.8); Carbon Dioxide 23 mEq/L (19-29); Chloride 108 mEq/L (98-109); Glucose 151 mg/dL (70-99); Osmolality,Calculated 286 (280-300); Potassium 4.3 mEq/L (3.5-4.5); Sodium 137 mEq/L (136-145); eGFR For African Americans > 60 (> 60); eGFR For Non-African Americans > 60 (> 60)
[2016-07-09] MEDS: Vancomycin 1,500 MG in D5% in Water 250 ML IVPB SCH (06:47)
[2016-07-09] MEDS: Levofloxacin 750 MG/150 ML 750 MG/150 ML BAG IVPB SCH (09:51)
[2016-07-09] MEDS: Nicotine 14 MG PATCH.TD24 TD SCH (09:52)
[2016-07-09] MEDS: 0.9 % Sodium Chloride 1,000 ML IVC SCH ×2 (09:52→23:49)
[2016-07-09] MEDS: Aspirin Enteric Coated 81 MG Tablet PO SCH (09:52)
[2016-07-09] MEDS: *HR* Heparin 5,000 UNIT/ML VIAL SQ SCH ×3 (09:52→23:50)
[2016-07-09] MEDS: Piperacillin/Tazobactam 3.375 GM in D5% in Water (Mini-Bag+) 100 ML IVPB SCH ×3 (09:53→23:50)
[2016-07-09] MEDS: Insulin LISPRO 300 UNITS/3 ML VIAL SQ SCH ×4 (09:53→20:51)
--- NOTE | 2016-07-09 10:41 | Internal Med Progress Note ---
<Rogerio Odell - Last Filed: 07/09/16 15:14> Date of Encounter: 07/09/16 Time of Encounter: 09:30 - Assessment and plan (1) Pneumonia Current Visit: No Status: Acute Assessment and plan: - Recent pneumonia in May but patient left AMA without prescriptions for continuation of antibiotic treatment. - Was on abatacept for RA prior to infection. - Low suspicion for TB given no weight loss, recent travel, or hemoptysis. - Respiratory infection panel pending. Blood cultures NGTD.. - Negative Strep and Legionella urine antigens. - Pulmonology was consulted and plans to have bronchoscopy later today. - Continue broad spectrum antibiotic coverage with Zosyn, Levofloxacin, and vancomycin. - Continue supplemental oxygen & Duoneb treatments. Qualifiers: Pneumonia type: due to unspecified organism Laterality: bilateral Lung location: unspecified part of lung Qualified Code(s): J18.9 - Pneumonia, unspecified organism (2) Abnormal CT scan, chest Current Visit: Yes Status: Acute Assessment and plan: - CT chest showed diffuse groundglass opacities bilaterally, mostly in the lower lobes. - Differential includes infectious, inflammatory, malignant. Interstitial lung disease is also possible given patient's significant history of rheumatoid arthritis. - Pulmonology was consulted and plans to perform BAL and brushings later today to evaluate for the cause of these changes on CT scan. Appreciate pulmonology assistance on patient care. (3) Severe sepsis Current Visit: Yes Status: Acute Assessment and plan: - 3 SIRS criteria (leukocytosis, fever & tachycardia on initial presentation) with lactic acid 2.9. - Likely secondary to pneumonia. - Improves as patient has been afebrile along with tachycardia & leukocytosis normalized. - Blood culture NGTD - Continue IV fluid and empiric antibiotics. (4) COPD (chronic obstructive pulmonary disease) Current Visit: Yes Status: Acute Assessment and plan: - Severe COPD and still active smoker. - Continue bronchodilators. - Supplemental oxygen. - Encourage smoking cessation. Qualifiers: COPD type: emphysema Emphysema type: unspecified Qualified Code(s): J43.9 - Emphysema, unspecified (5) Rheumatoid arthritis Current Visit: Yes Status: Chronic Assessment and plan: - Significant history of RA and was treated with DMARDs and biologic agent - Rheumatology was consulted. Appreciate assistance in the patient's medical management. Qualifiers: Rheumatoid arthritis location: multiple sites Rheumatoid factor presence: unspecified presence Qualified Code(s): M06.9 - Rheumatoid arthritis, unspecified (6) Erythrocytosis Current Visit: Yes Status: Chronic Assessment and plan: - Hemoglobin of 20.2, hematocrit 61, RBCs 7.02 on initial presentation. - Previously had blood letting weekly, but has not had one in the past 6 months. - Improves after IV fluids. - Oncology was consulted and thinks it's secondary erythrocytosis from chronic smoking, COPD, sleep apnea. - Supplemental oxygen use and CPAP use at night. (7) DVT prophylaxis Current Visit: Yes Status: Acute Assessment and plan: - SQ heparin. - Subjective Interval history: No significant event noted overnight. Patient was seen and examined this morning. Patient reports having diffuse soreness but otherwise feels better compared to yesterday. Patient's breathing has improved He denies chest pain, fever, chills, cough, nausea, vomiting, diarrhea. - Constitutional Vitals: Temp Pulse Resp BP Pulse Ox 97.5 F L 66 16 128/91 96 07/09/16 07:10 07/09/16 07:10 07/09/16 07:10 07/09/16 07:10 07/09/16 07:10 General appearance: Present: cooperative, A&O X 3, severe distress (Feeling sick & nauseated.), answers questions appropriately - Head Head exam: Present: atraumatic, normocephalic - Eye Eye exam: Present: PERRL, conjuntiva pink, sclera anicteric Pupils: Present: PERRL - Neck Neck exam general surgery: Present: supple, trachea midline. Absent: lymphadenopathy - Respiratory Respiratory exam: Present: rales (Left basilar crackles.). Absent: accessory muscle use, rhonchi, wheezes - Cardiovascular Cardiovascular exam: Present: RRR, +S1, +S2. Absent: diastolic murmur, gallop, rubs, systolic murmur - GI/Abdominal GI/Abdominal exam: Present: normal bowel sounds, soft, no peritoneal signs. Absent: distended, tenderness - Extremities Exam Extremities exam: Present: warm, radial pulses palpable and symetrical. Absent : calf tenderness, cyanotic, pedal edema - Neurological Exam Neurological exam: Present: CN II-XII intact, oriented X3, no focal deficits. Absent: pronater drift, facial droop, speech deficit - Skin Skin exam: Present: dry, intact Internal Medicine: Result - Labs CBC & Chem 7: 07/09/16 05:07 07/09/16 05:07 Labs: Short CBC 07/09/16 Range/Units 05:07 WBC 10.6 (4.3-11.1) K/mcL Hgb 16.6 D (12.9-16.9) g/dL Hct 52.6 H (37.5-50.1) % Plt Count 129 L (140-400) K/mcL Neutrophils # 6.4 (1.6-8.9) K/mcL BMP 07/09/16 05:07 Sodium 137 Potassium 4.3 Chloride 108 Carbon Dioxide 23 BUN 9 Creatinine 0.71 L Glucose 151 H Calcium 8.3 L - ABG Interpretation ABG results: PT/INR, D-dimer PT 12.2 Seconds (9.4-12.1) H 07/09/16 05:07 Consult Discharge Plan - Plan Referrals: Tamara Ordoñez, [employer] G[employer] MECHANIC [Primary Care Provider] - <Beni Bravo P - Last Filed: 07/09/16 18:44> - Constitutional Vitals: Temp Pulse Resp BP Pulse Ox 98 F 76 14 159/107 94 L 07/09/16 16:26 07/09/16 16:26 07/09/16 16:26 07/09/16 16:26 07/09/16 16:26 Internal Medicine: Result - Labs CBC & Chem 7: 07/09/16 05:07 07/09/16 05:07 Labs: Short CBC 07/09/16 Range/Units 05:07 WBC 10.6 (4.3-11.1) K/mcL Hgb 16.6 D (12.9-16.9) g/dL Hct 52.6 H (37.5-50.1) % Plt Count 129 L (140-400) K/mcL Neutrophils # 6.4 (1.6-8.9) K/mcL BMP 07/09/16 05:07 Sodium 137 Potassium 4.3 Chloride 108 Carbon Dioxide 23 BUN 9 Creatinine 0.71 L Glucose 151 H Calcium 8.3 L - ABG Interpretation ABG results: PT/INR, D-dimer PT 12.2 Seconds (9.4-12.1) H 07/09/16 05:07 - Attending Attestation I examined this patient and my medical decision-making was reviewed with the [facility]/PA/Advanced Practice Nurse/Resident Physician. I agree with the documented findings, disposition and treatment plan as described except to the extent set forth below.
--- NOTE | 2016-07-09 11:01 | Pulmonology Consult Note ---
<Miguel Ronquillo - Last Filed: 07/09/16 11:02> Date of Encounter: 07/09/16 Time of Encounter: 10:58 Assessment and Plan (1) Abnormal CT scan, chest Current Visit: Yes Status: Acute Patient has diffuse groundglass opacities bilaterally in the lower lobes predominantly on CT scan. These are essentially unchanged from CT scan in October 2015. There are no new focal areas of consolidation or opacification, there are no masses noted. Differential includes infectious, inflammatory, malignant, however malignancies is likely at this time. Given the patient's underlying rheumatoid arthritis this may be interstitial lung disease related to rheumatoid arthritis. Discussed bronchoscopy with the patient including risks and benefits and he is agreeable to proceed. We will perform BAL and brushings to evaluate for the cause of these changes on CT scan. Given the patient's rheumatoid arthritis and questionable treatment plan, we have consulted rheumatology for assistance in the patient's medical management. We appreciate their input. (2) COPD (chronic obstructive pulmonary disease) Current Visit: Yes Status: Acute Patient had PFTs in 2013 which revealed severe obstructive disease. Patient is a chronic smoker. We will encourage smoking cessation. Continue short-acting bronchodilators with DuoNeb's, we have added Symbicort patient's regimen. Patient should have outpatient follow-up and will likely need repeat PFTs and optimization of his COPD treatment. We will hold off on steroids at this time until rheumatology evaluates the patient and give recommendations. Qualifiers: COPD type: emphysema Emphysema type: unspecified Qualified Code(s): J43.9 - Emphysema, unspecified (3) Obstructive sleep apnea Current Visit: Yes Status: Acute Patient is been diagnosed with sleep apnea in the past. We recommend CPAP at night. History of Present Illness Consult date: 07/09/16 Requesting physician: Rogerio Odell Reason for consult: abnormal CXR/CT Chief complaint: Cough History of present illness: Patient is a 46-year-old male with history of rheumatoid arthritis who presents with cough. Patient states that he has been coughing for the last several weeks. He denies any production with this cough. He also states he occasionally gets short of breath during this time period as well. He denies fever, chills. He does state that he has pain all over that is chronic for him. Patient states that he has rheumatoid arthritis and has been receiving treatment but is not on anything at this time. He states that he took a Orencia in the past, last taken in middle of May and prednisone which he states he has not taken for months. Past Med Surg Social Fam HX - Past Medical History Medical history: COPD, diabetes, RA, other (BERNY) Psychiatric history: no psych history - Past Surgical History Surgical History: orthopedic, other (nodules removed from elbows, left foot, and right shoulder surgeries) - Social History Smoking Status: Current every day smoker Packs per day: 1 1/2 pack a day Smokeless Tobacco Status: No Alcohol use: none Drug use: none - Family History Mother Name: Lita Rider Age: 62 Family Member Ethnicity: Non- Living Status: Still Living Hx Family Cardiac Disorders: No Hx Family Respiratory Disorders: No Hx Family Cancer: No Hx Family GI Disorders: No Hx Family Genitourinary Disorders: No Hx Family Endocrine Disorder: No Hx Family Musculoskeletal Disorders: No Hx Family Neuromuscular Disorders: No Hx Family Neurologic Disorders: No Hx Family HEENT Disorders: No Hx Family Autoimmune Disorders: No Hx Family Reproductive Disorders: No Hx Family Psychosocial Disorders: No Hx Family Medical Disorders: No Father Living Status: Age at : 39 Hx Family Cardiac Disorders: Yes (Triple bypass at age 35, 35, and 37. [place] at 39) Hx Family Musculoskeletal Disorders: Yes (arthritis) Medications and Allergies Oxycodone HCl 30 mg PO Q6H PRN 10/17/15 [History] Linagliptin [Tradjenta] 5 mg PO DAILY 12/05/15 [History] Ibuprofen [Motrin] 600 mg PO Q6HR PRN #30 tab 12/18/15 [Rx] Ciclopirox [Loprox] 1 appl TP 3XW 12/27/15 [History] Aspirin [Lo-Dose Aspirin EC] 81 mg PO DAILY 07/07/16 [History] Allergies gabapentin [From Neurontin] Allergy (Verified 07/07/16 14:41) Hives acetaminophen [From Vicodin] Adverse Reaction (Severe, Verified 07/07/16 18:28) Nausea hydrocodone [From Vicodin] Adverse Reaction (Verified 07/07/16 18:28) Nausea Oxycodone [From OxyContin] Adverse Reaction (Verified 07/07/16 18:28) Itching triamcinolone [From Kenalog] Adverse Reaction (Verified 07/07/16 18:28) Headache All Systems: A 10-system review of systems was performed and is negative for pertinent findings except as documented above in the HPI. - Constitutional Constitutional: no chills, no fever(s), no weight loss - EENT Nose, mouth and throat: no sinus pain, no sinus pressure - Cardiovascular Cardiovascular: dyspnea, dyspnea on exertion, no chest pain, no edema, no syncope - Respiratory Respiratory: cough, dyspnea, dyspnea on exertion, no hemoptysis, no wheezing, no excessive phlegm production, no change in phlegm color - Gastrointestinal Gastrointestinal: no abdominal pain, no diarrhea, no nausea, no vomiting - Neurological Neurological: no numbness, no tingling, no weakness Physical Examination Vital Signs: Vital Signs, Last 4 Hours Temp Pulse Resp BP Pulse Ox 07/09/16 07:10 97.5 F L 66 16 128/91 96 General appearance: no acute distress ENT: oropharynx moist Neck: supple Effort: normal Auscultation: bilateral: clear Cardiovascular: regular rate and rhythm Gastrointestinal: normoactive bowel sounds, soft, non-tender, non-distended Integumentary: normal Extremities: no cyanosis, no edema, no clubbing normal mental status, non-focal exam Results - Laboratory Findings CBC and BMP: 07/09/16 05:07 07/09/16 05:07 PT/INR, D-dimer PT 12.2 Seconds (9.4-12.1) H 07/09/16 05:07 Abnormal lab findings: Abnormal lab results RBC 5.88 M/mcL (4.19-5.50) H 07/09/16 05:07 Hct 52.6 % (37.5-50.1) H 07/09/16 05:07 Plt Count 129 K/mcL (140-400) L 07/09/16 05:07 Reactive Lymphocytes Present (Not Present) A 07/07/16 15:29 PT 12.2 Seconds (9.4-12.1) H 07/09/16 05:07 Creatinine 0.71 mg/dL (0.72-1.25) L 07/09/16 05:07 Glucose 151 mg/dL (70-99) H 07/09/16 05:07 POC Glucose 179 (58-89) H 07/09/16 07:13 Calcium 8.3 mg/dL (8.6-10.8) L 07/09/16 05:07 Albumin 3.1 g/dL (3.5-5.0) L 07/08/16 03:38 Albumin/Globulin Ratio 1.0 (1.1-2.2) L 07/08/16 03:38 Vancomycin Trough 8.2 mcg/mL (10-20) L 07/09/16 05:07 - Microbiology Findings Microbiology Findings: Microbiology, Last 48 Hours 07/09/16 04:17 Legionella Antigen - Final Urine,Clean Catch Streptococcus pneumoniae Antigen (M - Final - Clinical Findings Intake & Output: Intake & Output 07/08/16 07/09/16 07/09/16 23:59 07:59 15:59 Intake Total 1710 / 1710 100 / 100 1480 / 1480 Output Total 1050 / 1050 Balance 1710 / 1710 -950 / -950 1480 / 1480 Weight 103.4 kg Consult Discharge Plan - Plan Referrals: Tamara Ordoñez, PALLIATIVE SENIOR NP [Primary Care Provider] - <Jose Mccormick - Last Filed: 07/09/16 12:45> Date of Encounter: 07/09/16 All Systems: A 10-system review of systems was performed and is negative for pertinent findings except as documented above in the HPI. Physical Examination Vital Signs: Vital Signs, Last 4 Hours Temp Pulse Resp BP Pulse Ox 07/09/16 11:10 97.9 F 67 16 133/77 97 Results - Laboratory Findings CBC and BMP: 07/09/16 05:07 07/09/16 05:07 PT/INR, D-dimer PT 12.2 Seconds (9.4-12.1) H 07/09/16 05:07 Abnormal lab findings: Abnormal lab results RBC 5.88 M/mcL (4.19-5.50) H 07/09/16 05:07 Hct 52.6 % (37.5-50.1) H 07/09/16 05:07 Plt Count 129 K/mcL (140-400) L 07/09/16 05:07 Reactive Lymphocytes Present (Not Present) A 07/07/16 15:29 PT 12.2 Seconds (9.4-12.1) H 07/09/16 05:07 Creatinine 0.71 mg/dL (0.72-1.25) L 07/09/16 05:07 Glucose 151 mg/dL (70-99) H 07/09/16 05:07 POC Glucose 179 (58-89) H 07/09/16 07:13 Calcium 8.3 mg/dL (8.6-10.8) L 07/09/16 05:07 Albumin 3.1 g/dL (3.5-5.0) L 07/08/16 03:38 Albumin/Globulin Ratio 1.0 (1.1-2.2) L 07/08/16 03:38 Vancomycin Trough 8.2 mcg/mL (10-20) L 07/09/16 05:07 - Microbiology Findings Microbiology Findings: Microbiology, Last 48 Hours 07/09/16 04:17 Legionella Antigen - Final Urine,Clean Catch Streptococcus pneumoniae Antigen (M - Final - Clinical Findings Intake & Output: Intake & Output 07/08/16 07/09/16 07/09/16 23:59 07:59 15:59 Intake Total 1710 / 1710 100 / 100 1480 / 1480 Output Total 1050 / 1050 Balance 1710 / 1710 -950 / -950 1480 / 1480 Weight 103.4 kg - Attending Attestation I examined this patient and my medical decision-making was reviewed with the FAMILY LAW PARALEGAL/PA/Advanced Practice Nurse/Resident Physician. I agree with the documented findings, disposition and treatment plan as described except to the extent set forth below. Patient seen and examined. Labs, radiology, chart personally reviewed. Agree with resident's history and physical, assessment, plan with following comments: PSYCHOLOGICAL OPERATIONS OFFICER: Patient follows commands, Pulmonary: Acceptable oxygenation and ventilation. Abnormal CT chest, differential diagnosis is broad, I believe bronchoscopy and biopsy is recommended to evaluate for any infection versus inflammatory lung disease. All risks, alternatives, and benefits of the procedure explained to patient and he agreed to have it done. thanks for the consult. Rheumatology input will be helpful.
--- NOTE | 2016-07-09 12:12 | Electrocardiograph Report ---
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
--- NOTE | 2016-07-09 14:06 | Rheumatology Consult Note ---
<Jef Couch - Last Filed: 07/09/16 16:12> Date of Encounter: 07/09/16 Time of Encounter: 11:20 Rheumatology Assess and Plan (1) Abnormal CT of the chest Current Visit: Yes Status: Acute Etiology unclear at this time. Possible ILD as he has RA. would also consider atypical infections and drug induced pneumonitis. would also consider Sarcoidosis with his bilateral hilar adenopathy. Malignancy would be in the differential as well as lymphagetic carcinamatosis can cause ground glass opacifications. However no history of Malignancy so I would think this less likely. Pulmonology is consulted. Patient will have bronchoscopy today. Would recommend prednisone 40 mg per day once infectious etiologies have been ruled out. Can follow up in the office and taper at that time. Will defer management of antibiotics to primary team and pulmonology. (2) Jaw pain Current Visit: Yes Status: Acute Possibly secondary to rhematoid arthritis. However given markedly elevated WBC count on admission would consider possible infectious etiology. Would consider Imaging and possible ENT consultation if imaging suggests infectious etiology. (3) Hypoxemia Current Visit: Yes Status: Acute Patient currently on 5L NC. management per primary team. (4) Rheumatoid arthritis Current Visit: Yes Status: Acute Will continue to hold Orencia until after bronchoscopy results. treatment plan will depend on bronchoscopy results. (5) Erythrocytosis Current Visit: Yes Status: Acute Oncology following. JAK2 was negative. Likely secondary. management per oncology. (6) Leukocytosis Current Visit: Yes Status: Acute patient had marked leukocytosis with predominant neutrophilia on admission. Infectious versus inflammatory? Patient is on broad spectrum antibiotics. Leukocytosis has since resolved. (7) Diabetes Current Visit: Yes Status: Acute will need to be monitored once steroids are started. (8) Tobacco abuse Current Visit: Yes Status: Acute advise cessation. Rheumatology HPI Consult date: 07/09/16 Requesting physician: Jose Mccormick Consult reason: recommendations on management of rheumatoid arthritis Chief complaint: left jaw pain History of present illness: Mr. Harmon is a 46 year old male with pmh diabetets, COPD, BERNY, and tobacco abuse. Additionally he has a history of seropositive rheumatoid arthritis that was first diagnosed in 2012. He has had both a positive RF and CCP. He was placed initially on methotrexate for 16-17 months. However, this had to be discontinued due to severe N/V. He was then placed on leflunamide but his N/V did not resolved. He was then placed on Humira.he was later switched to Orencia. He would be hospitalized in May with presumed pneumonia. CT scan would reveal bilateral ground glass opacities. He did receive antibiotics while hospitalized. However he did not receive an adequate course as he left AMA as it was . He was admitted to the hospital again on 07/07/15. On admission he tachycardic, tachypneic, and had an elevated WBC count of 24.4. His lactic acid was also elevated at 2.9. He was placed on broad spectrum antibiotics (vancomycin,Zosyn , and Levofloxacin) for Severe sepsis. Presumed source was HCAP. Since admission he has remained afebrile. His tachycardia and tachypnea have resolved. However he is on 5L of oxygen via nasal canula at this time. A CTA of the chest was performed which revealed bilateral ground glass opacifications , there are also unchanged bilateral paratracheal adn hilar lymphadenopath, there are calcified granulomas in the left upper lobe. No evidence of PE. Blood cultures drawn on 07/07/15 show no growth to date. Urine antigens for strep and legionella were negative. Pulmonology has been consulted and is following as well. Plan for Bronchoscopy later today. Rheumatology is consulted on 07/09/15 for recommendations on management of patients Rheumatoid arthritis. There is also the concern for possible ILD given the patients history of RA. Today Mr. Harmon states that he came to the hospital because he was having sinus pressure in the left maxillary sinus. He also complains of malaise. He denies any pain over the sinuses this morning. He denies any recent fevers or chills. Denies night sweats. Denies decrease hearing, ottarhea, or otalgia. He dose state that he now has pain in the left jaw. He points to his left TMJ area to describe the location. He dose states that he has difficulty opening his mouth all the way. he denies any recent dental work or tooth aches. denies change in quality of his voice. denies sore throat. He denies any pain with moving his neck. He states that the pain is sharp/ aching and 9/10. The pain is worsened with opening the jaw and with palpation. He also complains of left shoulder pain that is mild and worsened with movement and palpation. He also complains of lower back pain. He states that this is chronic but slightly worse than his baseline. He denies any incontinence, lower extremity weakness or saddle anesthesia. He denies any increase dyspnea. He states that he dose wear oxygen at home but only at night with his CPAP machine. He admits to a dry cough, denies hemoptysis, recent travel, sick contacts, dose not have any home pets, denies recent chemical exposures. At this time he has no further complaints or concerns. Past Med Surg Social Fam HX - Past Medical History Medical history: COPD, diabetes, RA, other (BERNY) Psychiatric history: no psych history - Past Surgical History Surgical History: orthopedic, other (nodules removed from elbows, left foot, and right shoulder surgeries) - Social History Smoking Status: Current every day smoker Packs per day: 1 1/2 pack a day Smokeless Tobacco Status: No Alcohol use: none Drug use: none - Family History Mother Name: Lita Rider Age: 62 Family Member Ethnicity: Non- Living Status: Still Living Hx Family Cardiac Disorders: No Hx Family Respiratory Disorders: No Hx Family Cancer: No Hx Family GI Disorders: No Hx Family Genitourinary Disorders: No Hx Family Endocrine Disorder: No Hx Family Musculoskeletal Disorders: No Hx Family Neuromuscular Disorders: No Hx Family Neurologic Disorders: No Hx Family HEENT Disorders: No Hx Family Autoimmune Disorders: No Hx Family Reproductive Disorders: No Hx Family Psychosocial Disorders: No Hx Family Medical Disorders: No Father Living Status: Age at : 39 Hx Family Cardiac Disorders: Yes (Triple bypass at age 35, 35, and 37. [place] at 39) Hx Family Musculoskeletal Disorders: Yes (arthritis) Medications and Allergies Oxycodone HCl 30 mg PO Q6H PRN 10/17/15 [History] Linagliptin [Tradjenta] 5 mg PO DAILY 12/05/15 [History] Ibuprofen [Motrin] 600 mg PO Q6HR PRN #30 tab 12/18/15 [Rx] Ciclopirox [Loprox] 1 appl TP 3XW 12/27/15 [History] Aspirin [Lo-Dose Aspirin EC] 81 mg PO DAILY 07/07/16 [History] Allergies gabapentin [From Neurontin] Allergy (Verified 07/07/16 14:41) Hives acetaminophen [From Vicodin] Adverse Reaction (Severe, Verified 07/07/16 18:28) Nausea hydrocodone [From Vicodin] Adverse Reaction (Verified 07/07/16 18:28) Nausea triamcinolone [From Kenalog] Adverse Reaction (Verified 07/07/16 18:28) Headache Review of Systems: HEENT: Denies headache or neck pain, denies sore throat, denies hearing or vision change, does admit to left jaw pain. Heart: Denies chest pain, exertional dyspnea, palpitations, orthopnea, paroxysmal nocturnal dyspnea, syncope, presyncope. Lungs: As per history of present illness GI: Denies nausea vomiting diarrhea constipation melena bloody stool : Denies dysuria hematuria or change in frequency denies difficulty in urination. Musculoskeletal: As per history of present illness. He complains of left jaw pain, left shoulder pain, lower back pain. Denies any new swelling in his joints. Integument: Denies rashes lesions or changes to the skin. Neurological: Denies focal motor or sensory deficits. Denies seizures. Heme: Denies any easy bleeding or bruising. Psychological: Denies depression, anxiety, mood swings. Infectious disease: Denies recent travel, sick contacts, dental procedures, pets at home Constitutional: Denies fevers chills, night sweats, weight loss, or weight gain. Denies malaise. Rheumatology Exam Vital Signs, Last 4 Hours Temp Pulse Resp BP Pulse Ox 07/09/16 11:10 97.9 F 67 16 133/77 97 Exam: General: This is a well-developed well-nourished 46-year-old male who is alert and orientated to person place time and situation. He is lying in bed and appears comfortable no acute distress. HEENT: Head is normocephalic and atraumatic. Pupils are equally round reactive to light and accommodation. Anicteric sclera. Normal external appearance of the ears nose and eyes. He does have some edema over the left TMJ. He does have difficulty opening the mouth fully. The mucous membranes are moist. No dental abscess could be identified. The posterior pharynx is pink without cobblestoning or exudate. The tongue is midline. The trachea is midline. There is no cervical submandibular or supraclavicular lymphadenopathy palpable on exam. No pain with movement of the neck. The external auditory canal had a normal appearance. The tympanic membrane was pearly beltre with coronal light and visible landmarks present. Heart: Heart had a regular rate and rhythm without murmurs rubs or gallops. No JVD. Lungs: He has normal effort of breathing and speaks in full sentences. No accessory muscles in use. He does have some mild crackles at the bases of the lungs bilaterally. Abdomen: Abdomen is obese, nondistended, nontender to palpation. Musculoskeletal: Grossly normal for age without gross deformities noted. He does have some swelling of the left TMJ that is quite tender to palpation. Does not have full range of motion of the jaw. No point tenderness along the spinous processes. No rheumatoid nodules noted. Does have some mild swelling of the MCP joints bilaterally with what appears to be some synovitis of the second MCP joint of the left hand and third MCP joint of the right hand. No tenderness or swelling of the knees ankles or feet noted. Integument: No rashes or lesions noted. No pitting or deformity of the nails noted. Extremities: There is no clubbing, cyanosis, or edema. Rheumatology Results 07/09/16 05:07 07/09/16 05:07 All other labs normal. Consult Discharge Plan - Plan Referrals: Tamara Ordoñez CNP [Primary Care Provider] - <Herve Gonzalez - Last Filed: 07/09/16 17:13> Rheumatology HPI History of present illness: Mr. Harmon is a 46 year old male All Systems Review: A 10-system review of systems was performed and is negative for pertinent findings except as documented above in the HPI. Rheumatology Exam Vital Signs, Last 4 Hours Temp Pulse Resp BP Pulse Ox 07/09/16 16:26 98 F 76 14 159/107 94 L 07/09/16 16:14 78 20 127/86 92 L 07/09/16 16:04 108 20 137/91 95 07/09/16 15:57 59 18 129/79 99 07/09/16 14:58 98.0 F 71 18 126/97 92 L Rheumatology Results 07/09/16 05:07 07/09/16 05:07 All other labs normal. - Attending Attestation I examined this patient and my medical decision-making was reviewed with the CONSULTING SENIOR PRACTICE DIRECTOR/PA/Advanced Practice Nurse/Resident Physician.~ I agree with the documented findings, disposition and treatment plan as described except to the extent set forth below. Salvatore Harmon is a 46 yo Male with a history seropositive, nodule, erosive RA; he also has a PMH of polycythemia, COPD and DM who presents to the hospital for overall worsening of symptom. - Shortness of breath; workup shows interstitial changes. Few bibasilar crackles. - Left jaw pain with tenderness of the left TMJ. Increased sinus pressure. Tympanic membrane clear and without erythema. Exam of oral cavity limited due to robert. - Synovitis noted on multiple MCPs with associated tenderness. RF 25, CCP >250 07/07/16 - CBC - WBC 26.9, neutrophils 23.1, Hb 20.2 07/10/16 - CTA Chest - Increased diffuse groundglass opacities with some interlobular thickening. 05/21 - CT Chest - Moderate mediastinal lymphadenopathy, mild bilateral hilar lymphadenopaty. Calcified granuloma in the left upper lobe. Mild ground-glass infiltrates present throughout both lungs. ILD - At this time, he has interstitial lung disease currently being worked up by pulmonary medicine and they are planning on bronchoscopy. Would like infections to be ruled out prior to alterations of therapy. Given history of RA , this may likely be an extraarticular manifestation of RA. Will await bronchoscopy cultures and if negative, he will likely need to have an increased dose of corticosteroids. Left Jaw Pain - While this could be a manifestation of RA with synovitis, would recommend CT of sinuses and left TMJ for visualization as perhaps this may be an infectious source that may explain his neutrophilia. RA - At this time, hold medications. It is unclear if medications contributed to ILD or if the ILD is a manifestation of his RA. After workup, will consider alternative therapy. Will follow-up after results and will follow closely.
[2016-07-09] MEDS ORDERED: Tetracaine/Benzocaine/Butamben 200MG/SPRAY (100SPY/BOT) MM ONE (15:07)
[2016-07-09] MEDS ORDERED: *HR* EPINEPHrine 1 MG/10 ML SYRINGE INTRATRACH PRN (15:07)
[2016-07-09] MEDS ORDERED: Lidocaine Viscous Oral Soln 15 ML SOLUTION MM ONE (15:07)
[2016-07-09] MEDS ORDERED: *HR* FentaNYL (PF) 100 MCG/2 ML VIAL IVP PRN (15:07)
[2016-07-09] MEDS ORDERED: *HR* Midazolam HCl 5 MG/5 ML VIAL IVP PRN (15:07)
[2016-07-09] MEDS ORDERED: 0.9 % Sodium Chloride 500 ML IVC SCH (15:15)
[2016-07-09] MEDS ORDERED: *HR* FentaNYL (PF) 100 MCG/2 ML VIAL ONE (15:17)
[2016-07-09] MEDS ORDERED: *HR* Midazolam HCl 5 MG/5 ML VIAL IVP ONE (15:17)
[2016-07-09] MEDS ORDERED: Lidocaine Viscous Oral Soln 15 ML SOLUTION ONE (15:17)
[2016-07-09] MEDS ORDERED: *HR* Promethazine 25 MG/ML VIAL ONE (15:18)
--- NOTE | 2016-07-09 15:51 | Pre-Sedation Evaluation ---
Pre-sedation evaluation - Pre-sedation checklist Date of procedure: 07/09/16 Procedure: Bronchoscopy Recent Vitals: Last Vital Signs Temp 98.0 F 07/09/16 14:58 Pulse 71 07/09/16 14:58 Resp 18 07/09/16 14:58 BP 126/97 07/09/16 14:58 Pulse Ox 92 L 07/09/16 14:58 H&P (including ROS) documented in medical record: Yes Previous reaction to sedatives/anesthetics: Unknown Dietary Status: NPO 6 hours prior to procedure Possible difficult airway: Yes If Yes;: Limited ability to open mouth ASA Classification *see protocol: CLASS III-Severe systemic disease Plan of Care: Pt appropriate candidate for procedure/moderate/conscious sedation , Risks/benefits of procedure/sedation discussed w/ patient/family
[2016-07-09 17:12] LABS: Source of Body Fluid RLL BAL
[2016-07-09] MEDS: Vancomycin 2,000 MG in D5% in Water 500 ML IVPB SCH (18:15)
[2016-07-09] MEDS: Budesonide/Formoterol 160/4.5 MDI IH SCH (19:45)
[2016-07-09] MEDS: *HR* OxyCODONE Immed Rel 15 MG TABLET PO PRN (19:54)
[2016-07-09 23:31] LABS: Appearance of Body Fluid Clear (Clear); Volume of Body Fluid 25 mL
--- NOTE | 2016-07-10 06:04 | Rheumatology Progress Note ---
<Jef Couch - Last Filed: 07/10/16 13:46> Date of Encounter: 07/10/16 Time of Encounter: 06:04 Rheumatology Assess and Plan (1) Abnormal CT of the chest Current Visit: Yes Status: Acute Etiology unclear at this time. Possible ILD as he has RA. would also consider atypical infections and drug induced pneumonitis. would also consider Sarcoidosis with his bilateral hilar adenopathy. Malignancy would be in the differential as well as lymphangitic carcinomatosis can cause ground glass opacifications. However no history of Malignancy so I would think this less likely. I think most likely this is either an extraarticular manisfistation of RA, drug induced pneumonitis or atypical infection. Exam is notable for bilateral lower lobe crepitations with auscultations. Overal Exam is unchanged from yesterday. O2 has decreased from 5 to 4.5 L via NC. Pulmonology is following. He did have a Bronchoscopy with BAL yesterday. Preliminary cultures of BAL from RLL/ LL show no growth to date. Gram stain did not reveal any bacteria as well. BAL fluid had 20% Neutrophils, 6% Lymphocytes , and 74% other cells ( pathology pending). On broad spectrum antibiotics. Management per pulm/primary team. Will consider adding steroids once infectious etiologies ruled out. Appreciate ongoing excellent care from primary team. Appreciate recommendations of pulmonology. (2) Jaw pain Current Visit: Yes Status: Acute Possibly secondary to rhematoid arthritis. CT scan did not reveal any acute fluid levels. there is mucoperiostial thickening of the maxillary sinuses, ethmoid air cells and sphenoid sinuses bilaterally. There is mild anterior subluxtion of the bilateral mandibular condyles. The right greater than the left. Likely secondayr to RA. However may consider MRI if infection is still a concern. (3) Hypoxemia Current Visit: Yes Status: Acute Mild improvement. Now on 4.5L NC down from 5L. management per primary team. (4) Rheumatoid arthritis Current Visit: Yes Status: Acute RF and CCP positive. history of rheumatoid nodules. Erosions seen on previous imaging. Will continue to hold Orencia until after bronchoscopy results. treatment plan will depend on bronchoscopy results as it is unclear if this is ILD,drug reaction, or infection at this point in time. (5) Erythrocytosis Current Visit: Yes Status: Acute Oncology following. JAK2 was negative. Likely secondary. management per oncology. (6) Leukocytosis Current Visit: Yes Status: Resolved patient had marked leukocytosis with predominant neutrophilia on admission. Infectious versus inflammatory? Now resolved. (7) Diabetes Current Visit: Yes Status: Acute Blood glucoe ranging from 151 to 264 over last 24 hours. May consider increasing sliding scale. Especially if steroids are added. will defer diabetes management to primary team. (8) Hypertension Current Visit: Yes Status: Acute patient had elevated blood pressures over night. Possibly secondary to pain. Resolved with oxycodone and hydralazine. management per primary team. (9) Tobacco abuse Current Visit: Yes Status: Acute advise cessation. - Subjective Interval history: No major events overnight. He did have a bronchoscopy yesterday which he tolerated well. This AM patient states that he is feeling better. he states that the pain in his jaw has lessened. He is able to open his mouth much more this AM but not fully yet. He states that he is had some pain in his jaw last night. He states the pain resolved with pain medications. He states that the pain is now well controlled. He was able to sleep comfortably. He states that the pain in his left shoulder has improved significantly as well. He denies any new discomfort. He has no further complaints or concerns at this time. ROS: Constitutional: Denies fever chills and weight change HEENT: denies head ache, hearing or vision changes, denies sore throat, admits to left jaw pain but states it is improving. Heart: denies chest pain or discomfort, denies syncope or presyncope Lungs: Denies increased dyspnea, admits to dry cough, denies hemoptysis GI: denies abdominal pain, N/V MSK: denies new aches or pains, admits to continues swelling in hands, admits to jaw pain Neuro: denies focal weakness or seizures Endocrine: denies polyuria or polydipsia Heme: denies easy bruising or bleeding, denies swollen glands Integument: denies rash or lesion Exam Vital Signs, Last 4 Hours Temp Pulse Resp BP Pulse Ox 07/10/16 04:30 98.2 F 69 18 124/95 94 L Exam: General: Mr. abarca is alert and orientated to person, place, time and situation. He is sitting on the left side of the hospital bed. He appears comfortable. No acute distress at this time. HEENT: the head is NC/AT, anicteric sclera, He still has some edema and warmth over the left TMJ. However he is able to open his mouth much wider today. I am able to visualize the oral cavity much better. I do not appreciate any abscess or oral lesions. dose have some carries. moist mucous membranes. Posterior pharynx is pink, the tongue, uvula dn trachea are all midline. The neck is supple without mass or thyromegally. No cervicle, submandibular or supraclavicular lymphadenopathy noted on my examination. Appears to have normal vocal tone when speaking. Able to flex, extend, and rotate neck without difficulty. Heart: RRR, no M/R/G Lungs: He has a normal effort of breathing. I do note "dry sounding" audible crepitations when auscultating the bilateral lower lung [place]iamson. Abdomen: Soft, Non distended, non tender to palpation. MSK: No gross deformity. Notable for decreased ROM of jaw, edema, warmth and tenderness to palpation of the left TMJ. Dose appear to have synovitis of multiple MCPs bilateral. Extremities: Warm, radial pulses 2/4 and syncrhonous, no clubbing, cyanosis or edema. Integument: No rashes, or lesions were noted on my exam. Objective Data 07/10/16 11:55 07/10/16 11:55 All other labs normal. Consult Discharge Plan - Plan Referrals: Tamara Ordoñez, [employer] [Primary Care Provider] - <Herve Gonzalez - Last Filed: 07/10/16 13:55> Exam Vital Signs, Last 4 Hours Temp Pulse Resp BP Pulse Ox 07/10/16 12:10 97.8 F 66 16 138/88 91 L Objective Data 07/10/16 11:55 07/10/16 11:55 All other labs normal. - Attending Attestation I examined this patient and my medical decision-making was reviewed with theResident Physician.~ I agree with the documented findings, disposition and treatment plan as described except to the extent set forth below. Salvatore Abarca is a 46-year-old male with history of seropositive, nodular, erosive RA, polycythemia, COPD, DM who presents to the hospital for leukocytosis , ILD and further workup. - Since admission, he has had a bronch with pending results. Leukocytosis has resolved with antiobitics but no obvious source of infection identified. - CT Chest with ILD and infectious workup pending; this may be extraarticular RA manifestation. - CT scan reviewed of sinuses and of of Chest. Left TMJ pain resolved and no tenderness on palpation. - Spoke to primary team who is going to further investigate with scanning. - Consider Ur Histo Ag in this immunosuppressed patient - Hold immunosuppression agents at this time and will continue to monitor.
[2016-07-10] MEDS: Vancomycin 2,000 MG in D5% in Water 500 ML IVPB SCH ×2 (06:14→19:50)
[2016-07-10] MEDS: Budesonide/Formoterol 160/4.5 MDI IH SCH ×2 (08:02→20:15)
[2016-07-10] MEDS: Aspirin Enteric Coated 81 MG Tablet PO SCH (09:54)
[2016-07-10] MEDS: Insulin LISPRO 300 UNITS/3 ML VIAL SQ SCH ×4 (09:54→20:10)
[2016-07-10] MEDS: Nicotine 14 MG PATCH.TD24 TD SCH (09:54)
[2016-07-10] MEDS: Piperacillin/Tazobactam 3.375 GM in D5% in Water (Mini-Bag+) 100 ML IVPB SCH ×2 (09:54→20:09)
[2016-07-10] MEDS: *HR* Heparin 5,000 UNIT/ML VIAL SQ SCH ×2 (09:54→16:49)
[2016-07-10] MEDS: Levofloxacin 750 MG/150 ML 750 MG/150 ML BAG IVPB SCH (09:55)
--- NOTE | 2016-07-10 10:37 | Internal Med Progress Note ---
<Rogerio Odell - Last Filed: 07/10/16 14:36> Date of Encounter: 07/10/16 Time of Encounter: 09:30 - Assessment and plan (1) Severe sepsis Current Visit: Yes Status: Acute Assessment and plan: - 3 SIRS criteria (leukocytosis, fever & tachycardia on initial presentation) with lactic acid 2.9. - Likely secondary to pneumonia but the highly elevated WBC raises the concern of other source of infection. - Improves as patient has been afebrile along with tachycardia & leukocytosis normalized. - Blood culture NGTD. - Will check HIV as patient's informed consent is obtained. - Will obtain CT head, CT neck soft tissue & CT A/P for further search of possible source of infection. - Continue IV fluid and empiric antibiotics. (2) Pneumonia Current Visit: No Status: Acute Assessment and plan: - Recent pneumonia in May but patient left AMA without prescriptions for continuation of antibiotic treatment. - Was on abatacept for RA prior to infection. - Low suspicion for TB given no weight loss, recent travel, or hemoptysis. - Respiratory infection panel pending. Blood cultures NGTD. - Negative Strep and Legionella urine antigens. - Pulmonology was consulted and BAL & brushing pending. - Continue broad spectrum antibiotic coverage with Zosyn, Levofloxacin, and vancomycin. - Continue supplemental oxygen & Duoneb treatments. Qualifiers: Pneumonia type: due to unspecified organism Laterality: bilateral Lung location: unspecified part of lung Qualified Code(s): J18.9 - Pneumonia, unspecified organism (3) Abnormal CT scan, chest Current Visit: Yes Status: Acute Assessment and plan: - CT chest showed diffuse groundglass opacities bilaterally, mostly in the lower lobes. - Differential includes infectious, inflammatory, malignant. Interstitial lung disease is also possible given patient's significant history of rheumatoid arthritis. - Pulmonology was consulted and BAL and brushings were performed via bronchoscopy. BAL & brushing results pending. Appreciate pulmonology assistance on patient care. (4) COPD (chronic obstructive pulmonary disease) Current Visit: Yes Status: Acute Assessment and plan: - Severe COPD and still active smoker. - Continue bronchodilators. - Supplemental oxygen. - Encourage smoking cessation. Qualifiers: COPD type: emphysema Emphysema type: unspecified Qualified Code(s): J43.9 - Emphysema, unspecified (5) Rheumatoid arthritis Current Visit: Yes Status: Chronic Assessment and plan: - Significant history of RA and was treated with DMARDs and biologic agent - Rheumatology was consulted. Appreciate assistance in the patient's medical management. Qualifiers: Rheumatoid arthritis location: multiple sites Rheumatoid factor presence: unspecified presence Qualified Code(s): M06.9 - Rheumatoid arthritis, unspecified (6) Erythrocytosis Current Visit: Yes Status: Chronic Assessment and plan: - Hemoglobin of 20.2, hematocrit 61, RBCs 7.02 on initial presentation. - Previously had blood letting weekly, but has not had one in the past 6 months. - Improves after IV fluids. - Oncology was consulted and thinks it's secondary erythrocytosis from chronic smoking, COPD, sleep apnea. - Supplemental oxygen use and CPAP use at night. (7) DVT prophylaxis Current Visit: Yes Status: Acute Assessment and plan: - SQ heparin. - Subjective Interval history: No significant event noted overnight. Patient was seen and examined this morning. Patient feels fine today and wonders when he can go home. Patient denies chest pain, fever, chills, shortness of breath, cough, nausea, vomiting, diarrhea. - Constitutional Vitals: Temp Pulse Resp BP Pulse Ox 97.4 F L 59 20 131/93 90 L 07/10/16 07:47 07/10/16 07:47 07/10/16 08:02 07/10/16 07:47 07/10/16 08:02 General appearance: Present: cooperative, A&O X 3, no acute distress, answers questions appropriately - Head Head exam: Present: atraumatic, normocephalic - Eye Eye exam: Present: PERRL, conjuntiva pink, sclera anicteric Pupils: Present: PERRL - Neck Neck exam general surgery: Present: supple, trachea midline - Respiratory Respiratory exam: Present: rales (Bibasilar). Absent: accessory muscle use, rhonchi, wheezes - Cardiovascular Cardiovascular exam: Present: RRR, +S1, +S2. Absent: diastolic murmur, gallop, rubs, systolic murmur - GI/Abdominal GI/Abdominal exam: Present: normal bowel sounds, soft, no peritoneal signs. Absent: distended, tenderness - Extremities Exam Extremities exam: Present: warm, radial pulses palpable and symetrical. Absent : calf tenderness, cyanotic, pedal edema - Neurological Exam Neurological exam: Present: CN II-XII intact, oriented X3, no focal deficits. Absent: pronater drift, facial droop, speech deficit - Skin Skin exam: Present: dry, intact, warm Internal Medicine: Result - Labs CBC & Chem 7: 07/10/16 11:55 07/10/16 11:55 - ABG Interpretation ABG results: PT/INR, D-dimer PT 12.2 Seconds (9.4-12.1) H 07/09/16 05:07 - Impressions Impressions Sinuses CT 07/09/16 18:00 IMPRESSION: Mucoperiosteal thickening of the maxillary sinuses and ethmoid air cells and sphenoid sinus. No acute fluid levels. Mild anterior subluxation of the left and right mandibular condyles from the mandibular fossa, left greater than right. MRI is better for evaluation of TMJ pathology. D/ / 07/09/2016 19:34:25 Yola Venegas MD / cally Interpreting Provider: Yola Venegas MD Consult Discharge Plan - Plan Referrals: Tamara Ordoñez, [employer] [Primary Care Provider] - <Beni Bravo P - Last Filed: 07/10/16 18:12> - Constitutional Vitals: Temp Pulse Resp BP Pulse Ox 97.5 F L 73 16 137/96 96 07/10/16 17:07 07/10/16 17:07 07/10/16 17:07 07/10/16 17:07 07/10/16 17:07 Internal Medicine: Result - Labs CBC & Chem 7: 07/10/16 11:55 07/10/16 11:55 Labs: Short CBC 07/10/16 Range/Units 11:55 WBC 9.3 (4.3-11.1) K/mcL Hgb 17.7 H (12.9-16.9) g/dL Hct 53.1 H (37.5-50.1) % Plt Count 142 (140-400) K/mcL Neutrophils # 6.0 (1.6-8.9) K/mcL BMP 07/10/16 11:55 Sodium 137 Potassium 4.0 Chloride 106 Carbon Dioxide 24 BUN 8 Creatinine 0.69 L Glucose 153 H Calcium 9.2 - ABG Interpretation ABG results: PT/INR, D-dimer PT 12.2 Seconds (9.4-12.1) H 07/09/16 05:07 - Impressions Impressions Sinuses CT 07/09/16 18:00 IMPRESSION: Mucoperiosteal thickening of the maxillary sinuses and ethmoid air cells and sphenoid sinus. No acute fluid levels. Mild anterior subluxation of the left and right mandibular condyles from the mandibular fossa, left greater than right. MRI is better for evaluation of TMJ pathology. D/ / 07/09/2016 19:34:25 Yola Venegas MD / bcarter Interpreting Provider: Yola Venegas MD Abdomen/Pelvis CT 07/10/16 10:30 IMPRESSION: 1. No acute intra-abdominal or intrapelvic process is identified to explain the clinical symptoms. 2. Bilateral pars defects at L5-S1. If there are neurologic symptoms, MRI could be performed for further evaluation. 3. Incidental findings include bibasilar atelectasis, minor atherosclerotic abdominal aortic calcification and mild degenerative changes affecting the hips, SI joints and spine. D/ / Tuan David MD / Tuan David MD Interpreting Provider: Tuan David MD Head CT 07/10/16 10:30 IMPRESSION: No acute intracranial abnormality. Bilateral ethmoid, axillary, and left sphenoid sinus disease. The presence of fluid suggests acute inflammation. D/ / Sherron Ramsay Cha, MD / Sherron Ramsay Cha, MD Interpreting Provider: Sherron Ramsay Cha, MD Soft Tissue Neck CT 07/10/16 10:30 IMPRESSION: Mediastinal lymphadenopathy and an enlarged right level 6 lymph node. Differential considerations include sarcoid or a lymphoproliferative disorder such as lymphoma. D/ / 07/10/2016 11:27:14 Melvin Hubbard MD / [facility] Interpreting Provider: Melvin Hubbard MD - Attending Attestation I examined this patient and my medical decision-making was reviewed with the RUSTIC TERRAZZO SETTER/PA/Advanced Practice Nurse/Resident Physician. I agree with the documented findings, disposition and treatment plan as described except to the extent set forth below.
[2016-07-10 12:06] LABS: Basophils # 0.1 K/mcL (0.0-0.2); Basophils % 0.5 %; Eosinophils # 0.2 K/mcL (0.0-0.6); Eosinophils % 1.8 %; Hematocrit 53.1 % (37.5-50.1); Hemoglobin 17.7 g/dL (12.9-16.9); Immature Granulocytes % 0.5 % (0-4); Lymphocytes # 2.5 K/mcL (0.6-4.6); Lymphocytes % 26.3 %; Mean Corpuscular HGB Conc 33.3 g/dL (31.6-35.5); Mean Corpuscular Hemoglobin 29.3 pg (28.0-33.3); Mean Corpuscular Volume 87.8 fL (83.0-100.0); Mean Platelet Volume 10.6 fL (9.4-12.4); Monocytes # 0.6 K/mcL (0.0-1.3); Monocytes % 6.5 %; Platelet Count 142 K/mcL (140-400); Red Blood Count 6.05 M/mcL (4.19-5.50); Red Cell Distribution Width 13.6 % (11.5-14.5); Segmented Neutrophils % 64.4 %
[2016-07-10 12:17] LABS: BUN/Creatinine Ratio 12 (6-26); Blood Urea Nitrogen 8 mg/dL (8-26); Calcium 9.2 mg/dL (8.6-10.8); Carbon Dioxide 24 mEq/L (19-29); Chloride 106 mEq/L (98-109); Glucose 153 mg/dL (70-99); Osmolality,Calculated 285 (280-300); Sodium 137 mEq/L (136-145); eGFR For African Americans > 60 (> 60); eGFR For Non-African Americans > 60 (> 60)
--- NOTE | 2016-07-10 14:12 | Electrocardiograph Report ---
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
[2016-07-10] MEDS: 0.9 % Sodium Chloride 1,000 ML IVC SCH (16:49)
[2016-07-11] MEDS: *HR* Heparin 5,000 UNIT/ML VIAL SQ SCH (00:09)
[2016-07-11] MEDS: Piperacillin/Tazobactam 3.375 GM in D5% in Water (Mini-Bag+) 100 ML IVPB SCH (00:09)
[2016-07-11] MEDS: *HR* OxyCODONE Immed Rel 15 MG TABLET PO PRN (04:44)
[2016-07-11 04:52] LABS: Basophils # 0.1 K/mcL (0.0-0.2); Basophils % 0.5 %; Eosinophils # 0.2 K/mcL (0.0-0.6); Eosinophils % 1.8 %; Hemoglobin 18.6 g/dL (12.9-16.9); Immature Granulocytes % 0.6 % (0-4); Lymphocytes # 3.1 K/mcL (0.6-4.6); Lymphocytes % 27.1 %; Mean Corpuscular HGB Conc 33.5 g/dL (31.6-35.5); Mean Corpuscular Hemoglobin 29.1 pg (28.0-33.3); Mean Corpuscular Volume 86.9 fL (83.0-100.0); Mean Platelet Volume 10.4 fL (9.4-12.4); Monocytes # 0.7 K/mcL (0.0-1.3); Monocytes % 5.9 %; Neutrophils # 7.3 K/mcL (1.6-8.9); Platelet Count 158 K/mcL (140-400); Red Blood Count 6.39 M/mcL (4.19-5.50); Red Cell Distribution Width 13.7 % (11.5-14.5); Segmented Neutrophils % 64.1 %
[2016-07-11 04:53] LABS: Hematocrit 55.5 % (37.5-50.1)
[2016-07-11] MEDS: 0.9 % Sodium Chloride 1,000 ML IVC SCH (04:54)
[2016-07-11 05:00] LABS: BUN/Creatinine Ratio 11 (6-26); Blood Urea Nitrogen 9 mg/dL (8-26); Calcium 9.2 mg/dL (8.6-10.8); Carbon Dioxide 25 mEq/L (19-29); Chloride 106 mEq/L (98-109); Glucose 143 mg/dL (70-99); Osmolality,Calculated 289 (280-300); Sodium 139 mEq/L (136-145); eGFR For African Americans > 60 (> 60); eGFR For Non-African Americans > 60 (> 60)
[2016-07-11] MEDS: Vancomycin 2,000 MG in D5% in Water 500 ML IVPB SCH (05:10)
[2016-07-11 06:57] VITALS: BP 120/86
[2016-07-11] MEDS: Budesonide/Formoterol 160/4.5 MDI IH SCH (07:53)
--- NOTE | 2016-07-11 09:19 | Discharge Summary ---
<Rogerio Odell - Last Filed: 07/11/16 13:42> Date of Encounter: 07/11/16 Time of Encounter: 08:15 - Discharge Diagnosis (1) Pneumonia Priority: Primary Status: Acute Qualifiers: Pneumonia type: due to unspecified organism Laterality: bilateral Lung location: unspecified part of lung Qualified Code(s): J18.9 - Pneumonia, unspecified organism (2) Severe sepsis Priority: Secondary Status: Acute (3) Abnormal CT scan, chest Priority: Secondary Status: Acute (4) COPD (chronic obstructive pulmonary disease) Priority: Secondary Status: Acute Qualifiers: COPD type: emphysema Emphysema type: unspecified Qualified Code(s): J43.9 - Emphysema, unspecified (5) Rheumatoid arthritis Priority: Secondary Status: Chronic Qualifiers: Rheumatoid arthritis location: multiple sites Rheumatoid factor presence: unspecified presence Qualified Code(s): M06.9 - Rheumatoid arthritis, unspecified (6) Erythrocytosis Priority: Secondary Status: Chronic (7) DVT prophylaxis Priority: Secondary Status: Acute - Discharge Medications Prescriptions: Levofloxacin [Levaquin] 750 mg PO DAILY #5 tablet Home Medications: Oxycodone HCl 30 mg PO Q6H PRN 10/17/15 [History] Linagliptin [Tradjenta] 5 mg PO DAILY 12/05/15 [History] Ibuprofen [Motrin] 600 mg PO Q6HR PRN #30 tab 12/18/15 [Rx] Ciclopirox [Loprox] 1 appl TP 3XW 12/27/15 [History] Aspirin [Lo-Dose Aspirin EC] 81 mg PO DAILY 07/07/16 [History] Levofloxacin [Levaquin] 750 mg PO DAILY #5 tablet 07/11/16 [Rx] Allergies/Adverse Reactions: Allergies gabapentin [From Neurontin] Allergy (Verified 07/07/16 14:41) Hives acetaminophen [From Vicodin] Adverse Reaction (Severe, Verified 07/07/16 18:28) Nausea hydrocodone [From Vicodin] Adverse Reaction (Verified 07/07/16 18:28) Nausea triamcinolone [From Kenalog] Adverse Reaction (Verified 07/07/16 18:28) Headache Procedures/tests Complete & Pending: Procedures Performed prior 72 hours Category Date Time Status CT abd pelvis wo no iv no oral [CT] Routine Cat Scan 07/10/16 10:[address] head/brain wo con [CT] Routine Cat Scan 07/10/16 10:[address] sinus wo con [CT] Routine Cat Scan 07/09/16 18:[address] soft tissue neck wo con [CT] Routine Cat Scan 07/10/16 10:30 Completed ECG 12 lead ECG [ECG] Routine Y 07/09/16 Completed ECG 12 lead ECG [ECG] Routine Y 07/09/16 Completed Date of admission: 07/07/16 19:28 Primary care physician: Tamara Ordoñez CNP Consults: 07/07/16 21:09 Consult to Pulmonology [CONS] Routine Consulting Provider: [facility] Reason for Consult: Pneumonia with history of DMARDs prior to infection. Considerations for pneumocystis jiroveci and possible bronchoscopy for diagnosis. Call Completed: No 07/07/16 21:32 Consult to Oncology [CONS] Routine Consulting Provider: [facility] Reason for Consult: elevated hemoglobin (20.2) previous phlebotomies Call Completed: No 07/09/16 10:43 Consult to Physician [CONS] Routine Consulting Provider: Herve Gonzalez Reason for Consult: RA/Medication management Call Completed: Yes 07/10/16 14:19 PICC Consult [Consult to Invasive Line Access Team] [CONS] Routine Reason for Consult: Failed IV on multiple attemps. 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 Please come back to emergency room if you develop significant shortness of breath or fever. Please follow up with you primary care provider within a week. - Diet and Activity Activity: increase activity as tolerated Diet: advance to your usual diet Hospital course: Mr. Harmon is a 46 year old male PMH of COPD, DM, RA, and BERNY. Patient was hospitalized in May 2016 for pneumonia but left AMA. Patient presented for worsening shortness of breath and cycles of fever, chills, nausea/vomiting since he left hospital. Patient was noted to have highly elevated WBC at 26.9 along with fever & tachycardia. Patient was admitted for sepsis secondary to pneumonia and started on IV vancomycin, Levaquin and Zosyn. CTA chest found no evidence of PE but diffuse groundglass opacities bilaterally, which raises the concern of pneumocystis jiroveci or other interstitial lung diseases. Pulmonology was consulted and bronchoscopy was done on 07/09/16 with BAL and brushing result. Oncology was consulted for erythrocytosis and thinks it's secondary erythrocytosis from chronic smoking, COPD, sleep apnea. Rheumatology was consulted for rheumatoid arthritis and outpatient follow-up is recommended. Patient had tony-CT scan including head, soft tissue neck and abdomen/pelvis but found no significant source of infection. Patient improves clinically with fever & tachycardia resolved and WBC normalized. HIV was checked with patient's consent and it's non-reactive. On 07/11/16, patient is recommended to continue his IV antibiotics treatment in the hospital. But patient elected to leave AGAINST MEDICAL ADVICE after he verbalized understanding about the risk including worsening infection such as pneumonia and sepsis, which can potentially lead to . PO Levaquin were prescribed and patient is recommended to come back to ED if he has worsening shortness of breath or fever. - Time Spent with Patient Total time spent providing and/or coordinating discharge services: Greater than 30 minutes - Constitutional Vitals: Temp Pulse Resp BP Pulse Ox 97.6 F 82 16 120/86 92 L 07/11/16 06:51 07/11/16 06:51 07/11/16 07:59 07/11/16 06:51 07/11/16 07:59 General appearance: Present: A&O X 3, no acute distress, answers questions appropriately - Head Head exam: Present: atraumatic, normocephalic - Eye Eye exam: Present: PERRL, conjuntiva pink, sclera anicteric Pupils: Present: PERRL - Neck Neck exam general surgery: Present: supple, trachea midline. Absent: lymphadenopathy - Respiratory Respiratory exam: Present: CTAB. Absent: accessory muscle use, rales, rhonchi, wheezes - Cardiovascular Cardiovascular exam: Present: RRR, +S1, +S2. Absent: diastolic murmur, gallop, rubs, systolic murmur - GI/Abdominal GI/Abdominal exam: Present: normal bowel sounds, soft, no peritoneal signs. Absent: distended, tenderness - Extremities Exam Extremities exam: Present: warm, radial pulses palpable and symetrical. Absent : calf tenderness, cyanotic, pedal edema - Neurological Exam Neurological exam: Present: CN II-XII intact, oriented X3, no focal deficits. Absent: pronater drift, facial droop, speech deficit - Skin Skin exam: Present: dry, intact, warm <Shelly,Beni P - Last Filed: 07/11/16 18:37> Procedures/tests Complete & Pending: Procedures Performed prior 72 hours Category Date Time Status CT abd pelvis wo no iv no oral [CT] Routine Cat Scan 07/10/16 10:[address] head/brain wo con [CT] Routine Cat Scan 07/10/16 10:[address] sinus wo con [CT] Routine Cat Scan 07/09/16 18:[address] soft tissue neck wo con [CT] Routine Cat Scan 07/10/16 10:30 Completed ECG 12 lead ECG [ECG] Routine Y 07/09/16 Completed ECG 12 lead ECG [ECG] Routine Y 07/09/16 Completed Date of admission: 07/07/16 19:28 Primary care physician: Tamara Ordoñez CNP Consults: 07/07/16 21:09 Consult to Pulmonology [CONS] Routine Consulting Provider: [facility] [place] Reason for Consult: Pneumonia with history of DMARDs prior to infection. Considerations for pneumocystis jiroveci and possible bronchoscopy for diagnosis. Call Completed: No 07/07/16 21:32 Consult to Oncology [CONS] Routine Consulting Provider: [facility] Reason for Consult: elevated hemoglobin (20.2) previous phlebotomies Call Completed: No 07/09/16 10:43 Consult to Physician [CONS] Routine Consulting Provider: Herev Gonzalez Reason for Consult: RA/Medication management Call Completed: Yes 07/10/16 14:19 PICC Consult [Consult to Invasive Line Access Team] [CONS] Routine Reason for Consult: Failed IV on multiple attemps. Need IV access for IV Abx Line Type: EPIV Call Completed: Yes Hospital course: Mr. Harmon is a 46 year old male - Time Spent with Patient Total time spent providing and/or coordinating discharge services: - Constitutional Vitals: Temp Pulse Resp BP Pulse Ox 97.6 F 82 16 120/86 92 L 07/11/16 06:51 07/11/16 06:51 07/11/16 07:59 07/11/16 06:51 07/11/16 07:59 - Attending Attestation I examined this patient and my medical decision-making was reviewed with the SALON SALES CONSULTANT/PA/Advanced Practice Nurse/Resident Physician. I agree with the documented findings, disposition and treatment plan as described except to the extent set forth below.
[2016-07-11] MEDS ORDERED: Aminoglycoside Consult 1 EACH MC ONE (09:54)
[2016-07-14 15:11] LABS: Influenza A PCR Body Fluid NOT DETECTED; Influenza B PCR Body Fluid NOT DETECTED; RSV PCR Body Fluid NOT DETECTED
== END 2016-07-11 09:55 | disposition left against medical advice (07) | DRG 720 ==
LOC: 2NENU 14:24 → EMEROO 14:24 → 2NENU 19:30
PROVIDERS: ADMIT Internal Medicine; ATTEND Internal Medicine
PROC: ENDOLBX (2016-07-09 17:30)

== ENCOUNTER 2022-03-05 15:56 | Inpatient (IN) ==
[2022-03-05] MEDS ORDERED: *HR* Heparin 5,000 UNIT/ML VIAL IVP PRN ×2 (18:18)
[2022-03-05] MEDS ORDERED: *HR* Heparin 5,000 UNIT/ML VIAL IVP ONE (18:18)
[2022-03-05 18:50] LABS: INR 1.7; Prothrombin Time 18.7 Seconds (9.4-12.1)
[2022-03-05 19:04] LABS: Alanine Aminotransferase 14 Units/L (7-52); Albumin 3.8 g/dL (3.5-5.7); Albumin/Globulin Ratio 1.4 (1.1-2.2); Alkaline Phosphatase 93 Units/L (34-104); Aspartate Amino Transferase 11 Units/L (13-39); BUN/Creatinine Ratio 11 (6-26); Bilirubin,Total 0.9 mg/dL (0.3-1.0); Blood Urea Nitrogen 10 mg/dL (6-20); Calcium 8.5 mg/dL (8.6-10.3); Carbon Dioxide 27 mEq/L (23-29); Chloride 100 mEq/L (98-107); Globulin 2.7 g/dL (2.4-3.5); Glucose 286 mg/dL (70-105); Osmolality,Calculated 289 (280-300); Potassium 3.7 mEq/L (3.5-5.1); Sodium 135 mEq/L (136-145); Total Protein 6.5 g/dL (6.4-8.9); Troponin I < 0.03 ng/mL (< 0.04)
[2022-03-05] MEDS: Heparin 25,000UNIT/250ML 1/2NS 25,000 UNIT/250 ML IV.SOLN IVC SCH (19:18)
[2022-03-05 19:39] LABS: Hemoglobin 14.6 g/dL (12.9-16.9); Immature Platelets 9.5 % (1.1-6.1); Mean Corpuscular Hemoglobin 41.5 pg (28.0-33.3); Mean Corpuscular Volume 122.2 fL (83.0-100.0); Mean Platelet Volume 11.3 fL (9.4-12.4); Red Blood Count 3.52 M/mcL (4.19-5.50); Red Cell Distribution Width 16.8 % (11.5-14.5)
[2022-03-05 19:51] LABS: INR 1.6; Prothrombin Time 17.5 Seconds (9.4-12.1)
[2022-03-05] MEDS ORDERED: Iopamidol - 370 500 ML MLS IVP ONE (20:06)
[2022-03-05] MEDS ORDERED: Naloxone 0.4 MG/ML INJ IVP PRN (22:57)
[2022-03-05] MEDS ORDERED: Ondansetron ODT 4 MG TAB.RAPDIS SL PRN (22:57)
[2022-03-05] MEDS ORDERED: Dextrose Gel 15 GM/37.5 ML TUBE PO PRN ×2 (23:00)
[2022-03-05] MEDS ORDERED: *HR* Dextrose 50 % in Water (Syg) 50 ML SYRINGE IVP PRN (23:00)
[2022-03-05] MEDS ORDERED: D5% in Water 1,000 ML IVC PRN (23:00)
[2022-03-06] MEDS: Famotidine 20 MG TABLET PO SCH ×3 (00:30→17:01)
[2022-03-06] MEDS ORDERED: Nicotine 14 MG PATCH.TD24 TD SCH (01:00)
[2022-03-06] MEDS ORDERED: hydrOXYzine pamoate 25 MG CAPSULE PO PRN (01:08)
[2022-03-06] MEDS: Nicotine 21 MG PATCH.TD24 TD SCH ×2 (01:16→20:21)
[2022-03-06] MEDS: Melatonin 3 MG TABLET PO PRN (01:22)
[2022-03-06 02:49] LABS: VBG HCO3 24 mEq/L (21-27); VBG PCO2 42 mmHg (41-51); VBG PH 7.37 pH Units (7.32-7.42); VBG PO2 133 mmHg (25-50)
[2022-03-06 03:07] LABS: Basophils % 0.6 %; Eosinophils % 0.4 %; Hemoglobin 14.4 g/dL (12.9-16.9); Immature Granulocytes % 0.4 % (0-4); Lymphocytes % 37.3 %; Mean Corpuscular HGB Conc 33.5 g/dL (31.6-35.5); Mean Corpuscular Hemoglobin 40.9 pg (28.0-33.3); Mean Corpuscular Volume 122.2 fL (83.0-100.0); Mean Platelet Volume 12.9 fL (9.4-12.4); Monocytes # 0.4 K/mcL (0.0-1.3); Monocytes % 6.5 %; Red Blood Count 3.52 M/mcL (4.19-5.50); Red Cell Distribution Width 16.5 % (11.5-14.5); Segmented Neutrophils % 54.8 %; White Blood Count 5.4 K/mcL (4.3-11.1)
[2022-03-06 03:14] LABS: Platelet Count 67 K/mcL (140-400)
[2022-03-06 03:32] LABS: Alanine Aminotransferase 21 Units/L (7-52); Albumin 3.5 g/dL (3.5-5.7); Albumin/Globulin Ratio 1.5 (1.1-2.2); Alkaline Phosphatase 96 Units/L (34-104); Aspartate Amino Transferase 32 Units/L (13-39); BUN/Creatinine Ratio 20 (6-26); Bilirubin,Total 0.5 mg/dL (0.3-1.0); Blood Urea Nitrogen 12 mg/dL (6-20); Calcium 8.1 mg/dL (8.6-10.3); Carbon Dioxide 24 mEq/L (23-29); Chloride 103 mEq/L (98-107); Globulin 2.4 g/dL (2.4-3.5); Glucose 234 mg/dL (70-105); Osmolality,Calculated 283 (280-300); Phosphorous 3.1 mg/dL (2.7-4.5); Sodium 133 mEq/L (136-145); Total Protein 5.9 g/dL (6.4-8.9)
[2022-03-06 03:48] LABS: Platelet Estimate Decreased (Normal)
[2022-03-06 03:49] LABS: Macrocytosis Present (Not Present)
[2022-03-06] MEDS: Insulin LISPRO 300 UNITS/3 ML VIAL SUBQ SCH ×4 (08:43→20:24)
[2022-03-06] MEDS: Insulin DETEMIR 100 UNIT/ML X5UNITS SUBQ SCH ×2 (08:46→20:24)
[2022-03-06] MEDS ORDERED: Nicotine 21 MG PATCH.TD24 TD SCH (09:00)
[2022-03-06] MEDS ORDERED: Insulin DETEMIR 100 UNIT/ML X5UNITS SUBQ SCH ×2 (09:00)
[2022-03-06] MEDS ORDERED: Pregabalin 50 MG CAPSULE PO SCH (09:00)
[2022-03-06] MEDS: ALPRAZolam 0.25 MG TABLET PO PRN ×2 (11:07→20:20)
[2022-03-06] MEDS: Heparin 25,000UNIT/250ML 1/2NS 25,000 UNIT/250 ML IV.SOLN IVC SCH (14:15)
[2022-03-06 17:31] LABS: Retculocyte # 0.05 M/mcL (0.05-0.10); Reticulocyte % 1.4 % (1.6-2.8)
[2022-03-06 17:48] LABS: % Iron Saturation 35 % (20-55); Iron 120 mcg/dL (65-175); Transferrin 244 mg/dL (203-362)
[2022-03-06 18:06] LABS: Ferritin 113 ng/mL (20-250)
[2022-03-06 18:12] LABS: Folate 8.3 ng/mL (3.0-16.0)
[2022-03-06 18:13] LABS: Vitamin B12 > 1500 pg/mL (250-1100)
[2022-03-06] MEDS: Furosemide 20 MG TABLET PO SCH (20:20)
[2022-03-06] MEDS: Hydroxyurea 500 MG CAPSULE PO SCH (20:20)
[2022-03-06] MEDS: *HR* OxyCODONE/APAP 5/325 TABLET PO PRN (20:36)
[2022-03-07 02:59] LABS: Red Cell Distribution Width 16.1 % (11.5-14.5)
[2022-03-07 03:01] LABS: Hematocrit 39.5 % (37.5-50.1); Hemoglobin 13.1 g/dL (12.9-16.9); Immature Platelets 8.3 % (1.1-6.1); Mean Corpuscular HGB Conc 33.2 g/dL (31.6-35.5); Mean Corpuscular Hemoglobin 40.8 pg (28.0-33.3); Mean Corpuscular Volume 123.1 fL (83.0-100.0); Mean Platelet Volume 13.5 fL (9.4-12.4); Red Blood Count 3.21 M/mcL (4.19-5.50); White Blood Count 4.4 K/mcL (4.3-11.1)
[2022-03-07] MEDS: *HR* OxyCODONE/APAP 5/325 TABLET PO PRN ×3 (04:11→16:26)
[2022-03-07] MEDS: ALPRAZolam 0.25 MG TABLET PO PRN ×3 (04:12→21:04)
[2022-03-07 05:10] LABS: Heparin anti-factor XA UFH 0.37 IU/mL (0.30-0.70)
[2022-03-07 05:14] LABS: Activated Partial Thrombo Time 60.1 Seconds (26.0-36.0)
[2022-03-07] MEDS: Heparin 25,000UNIT/250ML 1/2NS 25,000 UNIT/250 ML IV.SOLN IVC SCH (05:39)
[2022-03-07] MEDS ORDERED: Aspirin Enteric Coated 81 MG Tablet PO SCH (09:00)
[2022-03-07] MEDS: Insulin DETEMIR 100 UNIT/ML X5UNITS SUBQ SCH ×2 (09:30→21:10)
[2022-03-07] MEDS: Hydroxyurea 500 MG CAPSULE PO SCH (09:32)
[2022-03-07] MEDS: Furosemide 20 MG TABLET PO SCH ×2 (09:32→21:05)
[2022-03-07] MEDS: Insulin LISPRO 300 UNITS/3 ML VIAL SUBQ SCH ×4 (09:33→21:15)
[2022-03-07 12:25] LABS: Bilirubin,Urine Negative (Negative); Blood,Urine Negative (Negative); Clarity,Urine Clear (Clear); Color,Urine Yellow (Yellow); Glucose,Urine (UA) 300 mg/dL (Normal); Ketones,Urine Negative (Negative); Leukocyte Esterase,Urine Negative (Negative); Mucus,Urine Few per lpf (None-Few); Nitrite,Urine Negative (Negative); Protein,Urine Negative (Neg-Trace); RBC,Urine 0-3 per hpf (0-3); Specific Gravity,Urine 1.025 (1.010-1.025); Urobilinogen,Urine Normal (Normal); WBC,Urine 0-3 per hpf (0-3)
[2022-03-07 12:37] LABS: Protein/Creatinine Ratio,Urine 0.06 mg/mg (0.00-0.20)
[2022-03-07] MEDS: Acetaminophen 325 MG TABLET PO PRN (14:38)
[2022-03-07] MEDS: Famotidine 20 MG TABLET PO SCH (16:26)
[2022-03-07] MEDS: *HR* Rivaroxaban 15 MG TABLET PO SCH (21:05)
[2022-03-07] MEDS: Nicotine 21 MG PATCH.TD24 TD SCH (21:05)
[2022-03-07] MEDS: Melatonin 3 MG TABLET PO PRN (21:05)
[2022-03-08] MEDS: *HR* OxyCODONE/APAP 5/325 TABLET PO PRN (00:43)
[2022-03-08 02:44] LABS: Mean Corpuscular Hemoglobin 41.3 pg (28.0-33.3); Red Cell Distribution Width 15.9 % (11.5-14.5); White Blood Count 4.8 K/mcL (4.3-11.1)
[2022-03-08 02:46] LABS: Immature Platelets 10.5 % (1.1-6.1); Mean Corpuscular HGB Conc 34.1 g/dL (31.6-35.5); Mean Corpuscular Volume 120.9 fL (83.0-100.0); Red Blood Count 3.39 M/mcL (4.19-5.50)
[2022-03-08 02:49] LABS: Platelet Count 52 K/mcL (140-400)
[2022-03-08] MEDS: Acetaminophen 325 MG TABLET PO PRN (04:53)
[2022-03-08] MEDS: ALPRAZolam 0.25 MG TABLET PO PRN (05:47)
[2022-03-08 07:52] VITALS: BP 96/54; PULSE 98; TEMP 98.1; O2SAT 90
[2022-03-08] MEDS ORDERED: Hydroxyurea 500 MG CAPSULE PO SCH (09:00)
[2022-03-08] MEDS ORDERED: Aspirin Enteric Coated 81 MG Tablet PO SCH (09:00)
[2022-03-08] MEDS: *HR* Rivaroxaban 15 MG TABLET PO SCH (09:02)
[2022-03-08] MEDS: Furosemide 20 MG TABLET PO SCH (09:02)
[2022-03-08] MEDS: Insulin LISPRO 300 UNITS/3 ML VIAL SUBQ SCH (09:04)
== END 2022-03-08 13:48 | disposition home or self-care (01) | DRG 133 ==
LOC: 2NENU 15:56 → EMEROOARM 15:56 → 2NENU 23:39
PROVIDERS: ADMIT Internal Medicine; ATTEND Internal Medicine